=== PATIENT | female | born 1970 | race Caucasian/White ===

== ENCOUNTER → 2019-05-27 13:43 | Outpatient (BNVA) | payer MEDICARE, SELFPAY | PROVIDERS: PCP Nurse Practitioner Family; Visit Provider Nurse Practitioner | DX: M48.02 Spinal stenosis, cervical region (principal); G89.29 Other chronic pain; M54.5 Low back pain; G43.709 Chronic migraine without aura, not intractable, without status migrainosus; Z79.891 Long term (current) use of opiate analgesic | CPT/HCPCS: 99214 ==

== ENCOUNTER 2019-07-04 20:51 | Inpatient (IN) | payer MEDICARE, SELFPAY ==
[2019-07-04 20:54] VITALS: BP 158/118; PULSE 70; RESP 24; TEMP 36.6; O2SAT 99; BMI 44.1
[2019-07-04 21:49] LABS: Basophils # 0.1 10^3/uL (0.0-0.1); Basophils % 0.5 %; Eosinophils # 0.1 10^3/uL (0.0-0.8); Eosinophils % 0.9 %; Hematocrit 46.3 % (37.0-47.0); Hemoglobin 15.3 g/dL (11.5-15.3); Lymphocytes # 1.3 10^3/uL (0.8-4.8); Lymphocytes % 9.9 %; Mean Corpuscular Hemoglobin 32.9 pg (28.0-34.0); Mean Corpuscular Volume 99.6 fL (81-99); Mean Platelet Volume 9.9 fL (7.4-10.4); Monocytes # 0.7 10^3/uL (0.2-0.9); Neutrophils # 10.8 10^3/uL (1.8-7.7); Neutrophils % 83.3 %; Nucleated Red Blood Cells % 0 %; Platelet Count 414 10^3/cmm (130-400); Red Blood Count 4.65 10^6/uL (4.1-5.3); Red Cell Distribution Width 11.7 % (12.1-15.1)
[2019-07-04 22:02] LABS: Alanine Aminotransferase 25 U/L (0-33); Albumin Level 4.7 g/dL (3.5-5.2); Alkaline Phosphatase 50 IU/L (35-105); Anion Gap 18.3 (5-19); Aspartate Amino Transferase 30 U/L (0-32); Blood Urea Nitrogen 10 mg/dL (6-20); Calcium 10.7 mg/dL (8.5-10.5); Carbon Dioxide 26 mmol/L (22-29); Chloride 100 mmol/L (98-107); Globulin 4.6 g/dL (1.3-4.6); Glomerular Filtration Rate 75.9 mL/min (90-130); Glucose 141 mg/dL (65-115); Lipase 17 U/L (13-60); Potassium 4.3 mmol/L (3.5-5.1); Sodium 140 mmol/L (136-145); Total Bilirubin 0.6 mg/dL (0.15-1.2); Total Protein 9.3 g/dL (6.6-8.7)
--- NOTE | 2019-07-04 23:54 | ED_ITS ---
Entered by Marline Hinton, acting as scribe for Radha Martínez MD Jul 04, 2019 20:51 HPI - Abdominal Pain General: Chief Complaint: Abdominal Pain Stated Complaint: abd pain/n/v Time Seen by Provider: 07/04/19 23:52 Source: patient Mode of arrival: ambulatory Limitations: no limitations History of Present Illness: HPI narrative: 48 yo f came to the er pov for abd pain. Pt states that she has had some abd pain, nausea and vomiting. MD elicited complaint: abdominal pain Onset (ago): day(s) (today) Pain Consistency: constant Location: LUQ, RUQ, RLQ and LLQ Severity: moderate Radiation: none Exacerbating factors: nothing Relieving factors: nothing Associated Symptoms: Reports chills, nausea and vomiting; Denies dysuria Review of Systems General: Reports: other (negative unless marked) Const: Reports: chills Eyes: Denies: blurry vision or eye discomfort ENMT: Denies: throat pain or dental pain Card: Denies: chest pain Resp: Denies: shortness of breath GI: Reports: abdominal pain, nausea and vomiting : Denies: painful urination Musc: Denies: neck pain or back pain Skin/Breast: Denies: rash Neuro: Denies: headache Psych: Denies: depression Yonis/Lymph: Denies: easy bruising All/Imm: Denies: hives PFSH ED PFSH: Statuses (acute, chronic, etc) shown below reflect problem list status as previously entered and may not be historically accurate Medical History (Updated 07/05/19 @ 02:13 by Radha Martínez MD) Cervical stenosis of spine Chronic lumbosacral pain Chronic migraine w/o aura w/o status migrainosus, not intractable Status post fracture of femur left leg bone Surgical History (Updated 05/27/19 @ 14:30 by DARSHAN Meyer) S/P section S/P cholecystectomy S/P exploratory laparotomy abdominal surgery S/P splenectomy S/P tubal ligation Social History Smoking and tobacco status: never smoked Alcohol intake: current Alcohol intake frequency: holidays/special occasions only Physical Exam Const: COMMON NORMALS: no apparent distress, oriented x3 and healthy appearing HENMT: COMMON NORMALS: normocephalic and head/scalp atraumatic HEAD & SCALP: normocephalic and atraumatic Eye: COMMON NORMALS: PERRL and EOMs intact bilaterally PUPIL: Yes PERRL Neck/C-Spine: COMMON NORMALS: full ROM and supple Chest: COMMONS NORMALS: inspection of chest normal and palpation of chest normal Resp: COMMON NORMALS: normal respiratory effort, no retractions, no use of accessory muscles and clear to auscultation bilaterally AUSCULTATION: clear to auscultation bilaterally Cardio: COMMON NORMALS: regular rate, regular rhythm and no murmurs RATE: regular rate RHYTHM: regular rhythm GI: INSPECTION: Yes normal to inspection and Yes abdominal distension AUSCULTATION: Yes absent bowel sounds PALPATION: Yes firm Extremity: COMMON NORMALS: normal to inspection and full ROM Neuro: COMMON NORMALS: oriented x3, moves all extremities and no focal motor deficits Psych: COMMON NORMALS: mental status grossly normal, thought process normal and cooperative THOUGHT PROCESS: normal thought process Skin: COMMON NORMALS: no rashes or lesions noted and no wounds GENERAL SKIN EXAM: no rashes or lesions noted Course Vital Signs: Vital signs: Vital Signs Temperature 97.8 F 07/04/19 20:54 Pulse Rate 65 07/05/19 01:10 Respiratory Rate 24 H 07/04/19 20:54 Blood Pressure 170/96 07/05/19 01:10 Pulse Oximetry 96 07/05/19 01:10 MDM - Abdominal Pain MDM Narrative: Medical decision making narrative: Patient presents here with a small bowel obstruction. Patient CT scan showed this. Patient's lab work is otherwise normal. I spoke to hospitalist and will admit and place NG tube. Lab Data: Labs: Lab Results 07/04/19 07/04/19 07/05/19 Range/Units 21:38 21:38 00:27 WBC 13.0 H (4.0-10.0) 10^3/ uL RBC 4.65 (4.1-5.3) 10^6/u L Hgb 15.3 (11.5-15.3) g/dL Hct 46.3 (37.0-47.0) % MCV 99.6 H (81-99) fL MCH 32.9 (28.0-34.0) pg MCHC 33.0 (30.0-36.0) g/dL RDW 11.7 L (12.1-15.1) % Plt Count 414 H (130-400) 10^3/c mm MPV 9.9 (7.4-10.4) fL Neut % (Auto) 83.3 % Lymph % (Auto) 9.9 % Luna % (Auto) 5.0 % Eos % (Auto) 0.9 % Baso % (Auto) 0.5 % Neut # (Auto) 10.8 H (1.8-7.7) 10^3/u L Lymph # (Auto) 1.3 (0.8-4.8) 10^3/u L Luna # (Auto) 0.7 (0.2-0.9) 10^3/u L Eos # (Auto) 0.1 (0.0-0.8) 10^3/u L Baso # (Auto) 0.1 (0.0-0.1) 10^3/u L Nucleated RBC % (a uto) 0 % Nucleated RBCs # 0.0 /100WBC Sodium 140 (136-145) mmol/L Potassium 4.3 (3.5-5.1) mmol/L Chloride 100 (98-107) mmol/L Carbon Dioxide 26 (22-29) mmol/L Anion Gap 18.3 (5-19) BUN 10 (6-20) mg/dL Creatinine 0.8 (0.5-0.9) mg/dL GFR Calculation 75.9 L (90-130) mL/min Glucose 141 H (65-115) mg/dL Calcium 10.7 H (8.5-10.5) mg/dL Total Bilirubin 0.6 (0.15-1.2) mg/dL AST 30 (0-32) U/L ALT 25 (0-33) U/L Alkaline Phosphata se 50 (35-105) IU/L Total Protein 9.3 H (6.6-8.7) g/dL Albumin 4.7 (3.5-5.2) g/dL Globulin 4.6 (1.3-4.6) g/dL Lipase 17 (13-60) U/L Urine Color Yellow (Yellow) Urine Appearance Clear (CLEAR) Urine pH 7 (5-7) Ur Specific Gravit y 1.010 (1.005-1.030) Urine Protein Neg (Negative) Urine Glucose (UA) Norm (Normal) Urine Ketones 2+ H (Negative) Urine Occult Blood Neg (Negative) Urine Nitrate Negative (Negative) Urine Bilirubin Neg (NEGATIVE) Urine Urobilinogen Norm (Negative) mg/dL Ur Leukocyte Jenny ase Trace H (Negative) Urine RBC 0-4 H (0-2) /hpf Urine WBC 15-25 H (0-5) /hpf Ur Squamous Epith Cells 15-25 H (0-5) Urine Bacteria 2+ H (NONE) Imaging Data ^: CT Abd/Pel: Radiologist's impression: Ordering Provider/Ordering MD: Radha Martínez MD Date of Service: 07/04/19 Procedure(s): CT abdomen pelvis w con* [id number] Accession Number(s): [id number] Report Number: [id number] PROCEDURE INFORMATION: Exam: CT Abdomen And Pelvis With Contrast Exam date and time: 07/04/2019 12:13 AM Age: 48 years old Clinical indication: Nausea and vomiting; Abdominal pain; Localized; Left upper quadrant (luq); Prior surgery; Surgery date: 6+ months; Surgery type: Gb, splenectomy; Additional info: Abd pain TECHNIQUE: Imaging protocol: Computed tomography of the abdomen and pelvis with intravenous contrast. Total DLP: 2014.22 mGy-cm Radiation optimization: All CT scans at this facility use at least one of these dose optimization techniques: automated exposure control; mA and/or kV adjustment per patient size (includes targeted exams where dose is matched to clinical indication); or iterative reconstruction. Contrast material: OMNI 300; Contrast volume: 95 ml; Contrast route: IV; COMPARISON: CT pelvis w con* [id number] 02/13/2019 1:29 AM FINDINGS: Lungs: There is subpleural atelectasis of the dependent portions of the lungs. There is a mild tree-in-bud appearance to the lung bases compatible with mild pneumonitis. There is a 4 mm nodule right lower lobe image 80. Liver: There is a diffuse decrease in hepatic parenchymal density, consistent with fatty infiltration. Gallbladder and bile ducts: There has been a cholecystectomy. Pancreas: Normal. No ductal dilation. Spleen: Normal. No splenomegaly. Adrenals: Normal. No mass. Kidneys and ureters: There is no evidence of hydronephrosis. There is no evidence of renal calcifications. Stomach and bowel: There are fluid-filled dilated loops of small bowel compatible with partial small bowel obstruction with the greatest transverse measurement of 4.2 cm. There is induration of the adjacent fat. There is an abrupt transition zone compatible probable adhesions. Appendix: No evidence of appendicitis. Intraperitoneal space: Unremarkable. No free air. No significant fluid collection. Vasculature: Unremarkable.No abdominal aortic aneurysm. Lymph nodes: Unremarkable.No enlarged lymph nodes. Bladder: The bladder is decompressed. Reproductive: Uterus is mildly enlarged and lobulated in contour with heterogeneous density compatible with fibroids. Visualized ovaries and adnexa are unremarkable. Bones/joints: Unremarkable. No acute fracture. Soft tissues: There is a fat-containing umbilical hernia. CT/CT abdomen pelvis w con* [id number] IMPRESSION: 1. Mild pneumonitis and atelectasis. 4 mm right basilar nodule. For patients at low risk (minimal or absent history of smoking and of other known risk factors), no routine follow-up is indicated. For patients at high risk (history of smoking or of other known risk factors), consider optional CT Chest at 12 months. MacMahon H, Fleischner Society, 2017. 2. Partial small bowel obstruction with abrupt transition compatible with probable adhesions. Discharge Plan Discharge Patient Disposition: Admitted As Inpatient Admit Provider: Heather Gordon Clinical Impression: Small bowel obstruction Condition: Stable Coding Level of Care Code ED Roller Printer for Chg Fwd Exam Problem Focused The documentation recorded by the Jamaal simon Stephanie Lyn, accurately reflects the service I personally performed and the decisions made by Mauricio pina Korby, MD Jul 04, 2019 20:51
[2019-07-04 23:57] VITALS: BP 200/104; PULSE 67; O2SAT 95
--- NOTE | 2019-07-04 23:57 | CTR_ITS ---
PROCEDURE INFORMATION: Exam: CT Abdomen And Pelvis With Contrast Exam date and time: 07/04/2019 12:13 AM Age: 48 years old Clinical indication: Nausea and vomiting; Abdominal pain; Localized; Left upper quadrant (luq); Prior surgery; Surgery date: 6+ months; Surgery type: Gb, splenectomy; Additional info: Abd pain TECHNIQUE: Imaging protocol: Computed tomography of the abdomen and pelvis with intravenous contrast. Total DLP: 2014.22 mGy-cm Radiation optimization: All CT scans at this facility use at least one of these dose optimization techniques: automated exposure control; mA and/or kV adjustment per patient size (includes targeted exams where dose is matched to clinical indication); or iterative reconstruction. Contrast material: OMNI 300; Contrast volume: 95 ml; Contrast route: IV; COMPARISON: CT pelvis w con* [id number] 02/13/2019 1:29 AM FINDINGS: Lungs: There is subpleural atelectasis of the dependent portions of the lungs. There is a mild tree-in-bud appearance to the lung bases compatible with mild pneumonitis. There is a 4 mm nodule right lower lobe image 80. Liver: There is a diffuse decrease in hepatic parenchymal density, consistent with fatty infiltration. Gallbladder and bile ducts: There has been a cholecystectomy. Pancreas: Normal. No ductal dilation. Spleen: Normal. No splenomegaly. Adrenals: Normal. No mass. Kidneys and ureters: There is no evidence of hydronephrosis. There is no evidence of renal calcifications. Stomach and bowel: There are fluid-filled dilated loops of small bowel compatible with partial small bowel obstruction with the greatest transverse measurement of 4.2 cm. There is induration of the adjacent fat. There is an abrupt transition zone compatible probable adhesions. Appendix: No evidence of appendicitis. Intraperitoneal space: Unremarkable. No free air. No significant fluid collection. Vasculature: Unremarkable.No abdominal aortic aneurysm. Lymph nodes: Unremarkable.No enlarged lymph nodes. Bladder: The bladder is decompressed. Reproductive: Uterus is mildly enlarged and lobulated in contour with heterogeneous density compatible with fibroids. Visualized ovaries and adnexa are unremarkable. Bones/joints: Unremarkable. No acute fracture. Soft tissues: There is a fat-containing umbilical hernia. CT/CT abdomen pelvis w con* [id number] IMPRESSION: 1. Mild pneumonitis and atelectasis. 4 mm right basilar nodule. For patients at low risk (minimal or absent history of smoking and of other known risk factors), no routine follow-up is indicated. For patients at high risk (history of smoking or of other known risk factors), consider optional CT Chest at 12 months. Tonya Barillas, Fleischner Society, 2017. 2. Partial small bowel obstruction with abrupt transition compatible with probable adhesions. Radiation Dose CTDIVOL = (mGy): DLP = 2014.22 (mGy-cm)
[2019-07-05] VITALS (11 sets, daily range): BP systolic 121–170; BP diastolic 74–96; PULSE 65–91; RESP 16–20; TEMP 37.1–37.3; O2SAT 93–97
[2019-07-05] MEDS: morphine 4 mg/mL SDV 1 mL IVP ×6 (00:17→20:14)
[2019-07-05] MEDS: ondansetron 2 mg/ML SDV 2 mL 4 MG IVP ×4 (00:17→17:45)
[2019-07-05] MEDS: sodium chloride 0.9% 1,000 ML 999 ML IV (00:18)
--- NOTE | 2019-07-05 00:32 | PC.NURSE ---
pt to CT by stretcher with tech
[2019-07-05] MEDS: iohexol 300 mg/mL 100 mL Btl IV (00:34)
[2019-07-05 01:08] LABS: Add Urine Microscopic? YES; Bilirubin Urine Neg (NEGATIVE); Blood Urine Neg (Negative); Glucose Urine UA Norm (Normal); Ketones Urine 2+ (Negative); Leukocyte Esterase Urine Trace (Negative); Nitrate Urine Negative (Negative); Protein Urine Neg (Negative); Urine Appearance Clear (CLEAR); Urine Color Yellow (Yellow); Urobilinogen Urine Norm (Negative); pH Urine 7 (5-7)
[2019-07-05] MEDS: LORazepam 2 mg/mL INJ 1 mL 1 MG IVP (01:09)
[2019-07-05 01:24] LABS: RBC Urine 0-4 /hpf (0-2); Squamous Epithelial Cell Urine 15-25 (0-5); WBC Urine 15-25 /hpf (0-5)
[2019-07-05 01:25] LABS: Add Urine Culture? No; Bacteria Urine 2+
[2019-07-05] MEDS: cetacaine Spray 5 gm Can 5 SPRAY (02:23)
[2019-07-05] MEDS: LORazepam 2 mg/mL INJ 1 mL IVP (02:24)
[2019-07-05] MEDS: sodium chloride 0.9% 1,000 ML 100 ML IV ×2 (03:15→17:34)
--- NOTE | 2019-07-05 03:27 | XR_ITS ---
WS: [id number] ABDOMEN Supine view of the abdomen CLINICAL INFORMATION: ng tube placement COMPARISON: None. FINDINGS: Enteric tube with tip in the proximal stomach. Cholecystectomy clips. Partially visualized bowel gas pattern. XR/XR abdomen 1V* [id number] IMPRESSION: Enteric tube with tip in the proximal stomach.
[2019-07-05] MEDS: lanolin oint 7 gm 1 APPLIC TOPICAL (03:57)
--- NOTE | 2019-07-05 05:28 | P.HP_ITS ---
Providers/Chief Complaint Admitting Physician: Heather Gordon MD Primary Care Provider: Abram Crump NP Chief Complaint: abd pain/n/v History of Present Illness Virgen Nam is a 48 year old female who presented to the emergency room with chief complaint of abdominal pain associated with frequent nausea and vomiting. She says pain came on somewhat suddenly. Pain is throughout her abdomen worse in the right sided quadrants and in the midline. She had a small hard bowel movement yesterday morning. She has continued to pass small amounts of gas intermittently. Last episode of vomiting was about an hour ago. She denies fevers. She has had similar symptoms in the past. CT of the abdomen and pelvis today showed partial small bowel obstruction with an abrupt transition point. NG tube was placed in the emergency room. She is being admitted for further monitoring and treatment as indicated. She has had NG tube before and describes having lots of adhesions related to prior abdominal surgeries. Biggest concern at the moment is the degree of pain. Her last dose of oxycodone was yesterday around noon that she was able to keep down. She has not had any hematemesis. Bowels are usually every other day and hard. No recent changes to this beyond what is described. Review of Systems Const: Reports: chills and night sweats; Denies: fever Eyes: Denies: change in vision ENMT: Reports: throat pain (With ngt) Card: Denies: chest pain Resp: Denies: shortness of breath GI: Reports: abdominal pain, nausea, vomiting, constipation (Goes usually every other day), bloating, cramping and change in bowel habits; Denies: vomiting blood or painful bowel movements : Denies: difficulty urinating or painful urination Musc: Denies: extremity pain Skin/Breast: Denies: rash or itching Neuro: Reports: headache (Hx of migraines, on propranolol, has daily) Psych: Reports: anxiety and depression Endo: Denies: deepening of the voice Medications/Allergies Allergies Allergy/AdvReac Type Severity Reaction Status Date / Time adhesive tape Allergy unknown Verified 05/27/19 14:04 celecoxib [From Celebrex] Allergy difficulty Verified 05/27/19 14:04 breathing duloxetine [From Cymbalta] Allergy difficulty Verified 05/27/19 14:04 breathing erythromycin base Allergy nausea Verified 05/27/19 14:04 NSAIDS (Non-Steroidal Allergy upset Verified 05/27/19 14:04 Anti-Inflamma stomach sumatriptan [From Imitrex] Allergy difficulty Verified 05/27/19 14:04 breathing topiramate [From Topamax] Allergy confusion Verified 05/27/19 14:04 venlafaxine [From Effexor] Allergy unknown Verified 05/27/19 14:04 Additional Medication Information Additional Medication Information: Her medications include oxycodone 30 mg 5 times a day, follows at the pain clinic [facility] for this, takes propranolol twice daily for migraine prophylaxis, take Zanaflex for muscle pain and takes Zofran for nausea. She takes melatonin for sleep. Medicines have to be further reviewed and verified otherwise. PFSH Acute PFSH: Statuses (acute, chronic, etc) shown below reflect problem list status as previously entered and may not be historically accurate Medical History (Updated 07/05/19 @ 06:04 by Heather Gordon MD) Cervical stenosis of spine Chronic lumbosacral pain Chronic migraine w/o aura w/o status migrainosus, not intractable On propranolol prophylaxis Status post fracture of femur left leg bone Surgical History (Updated 07/05/19 @ 05:30 by Heather Gordon MD) S/P section S/P cholecystectomy S/P exploratory laparotomy abdominal surgery S/P splenectomy S/P tubal ligation Social History Smoking and tobacco status: never smoked Alcohol intake: current Alcohol intake frequency: holidays/special occasions only Female Reproductive History: : 3 Para: 2 Vitals/I&O/Wt Last Vital Signs Temp 99.1 F 07/05/19 02:56 Pulse 89 07/05/19 02:56 Resp 20 H 07/05/19 02:56 BP 158/89 07/05/19 02:56 Pulse Ox 93 07/05/19 02:56 07/04/19 07/04/19 07/05/19 14:59 22:59 06:59 Intake Total 1000 / 1000 Balance 1000 / 1000 Weight last 48 hrs Weight 120.202 kg Physical Exam Const: COMMON NORMALS: oriented x3 and alert HENMT: COMMON NORMALS: normocephalic and head/scalp atraumatic Eye: COMMON NORMALS: PERRL and EOMs intact bilaterally Neck/C-Spine: COMMON NORMALS: supple and no JVD Resp: COMMON NORMALS: normal respiratory effort and clear to auscultation bilaterally Cardio: COMMON NORMALS: regular rate and regular rhythm; negative for no gallops and negative for no murmurs GI: COMMON NORMALS: soft to palpation AUSCULTATION: Yes high-pitched bowel sounds PALPATION: Yes tender Details: RLQ, LUQ and RUQ Extremity: COMMON NORMALS: no clubbing, cyanosis or edema Neuro: COMMON NORMALS: moves all extremities and no sensory deficits noted Psych: COMMON NORMALS: mental status grossly normal and cooperative Skin: NARRATIVE SKIN EXAM: No acute rashes noted some sores in different stages of healing minor Data : 07/04/19 21:38 07/04/19 21:38 Other Labs: Urine with 2+ ketones and otherwise looks to be a contaminated specimen LFTs normal although total protein was a bit high, suspect due to volume depletion CT Abd/Pel: Radiologist's impression: 1. Mild pneumonitis and atelectasis. 4 mm right basilar nodule. For patients at low risk (minimal or absent history of smoking and of other known risk factors), no routine follow-up is indicated. For patients at high risk (history of smoking or of other known risk factors), consider optional CT Chest at 12 months. Tonya Barillas, Fleischner Society, 2017. 2. Partial small bowel obstruction with abrupt transition compatible with probable adhesions. A&P Assessment and plan (1) Small bowel obstruction: In a patient with multiple prior abdominal surgeries. From the sounds of things she probably has chronic issues to some degree. This is acutely worsened the past couple of days. Status: Acute Code(s): K56.609 - Unspecified intestinal obstruction, unspecified as to partial versus complete obstruction (2) Chronic narcotic use: Follows at the pain clinic, on oxycodone 30 mg 5 times a day as well as Zanaflex. Status: Acute Code(s): F11.90 - Opioid use, unspecified, uncomplicated (3) Chronic migraine w/o aura w/o status migrainosus, not intractable: On chronic propranolol for prophylaxis, still has a migraine daily Status: Chronic Code(s): G43.709 - Chronic migraine without aura, not intractable, without status migrainosus Additional A&P Information Continue NG tube Consult surgery IV pain medications for now, discussed with patient the challenge of getting adequate analgesia with IV medications when she has been on the doses of oral medicine she usually takes. Told her that we would work on getting her pain under control Check lactic acid IV fluids Keep n.p.o. Resume home medications when able Supportive care otherwise Plans discussed with patient and she was given an opportunity to ask questions Full code Attestations Medical Necessity Statement*: Anticipated stay greater than 2 midnights in a patient with partial small bowel obstruction with an abrupt transition point noted on CT imaging. She has had persistent nausea, vomiting and abdominal pain. She is normally on high-dose oral narcotics which will make management more challenging. Plans are as noted. Coding Level of Care Code Acute [employer] Support for Dashawn Randall Diagnoses Small bowel obstruction K56.609 Chronic narcotic use F11.90 Chronic migraine w/o aura w/o status migrainosus, not intractable G43.708
--- NOTE | 2019-07-05 06:25 | PM.CONSULT ---
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 Patient denies any fevers or chills Patient reports that she had passed gas yesterday and a small bowel movement and usually she does have every other day a small bowel movement, she also reports that she has been on chronic narcotic therapy for migraine General surgery was consulted for further evaluation Review of Systems Const: Denies: fever, chills, body aches or malaise Card: Denies: chest pain Resp: Denies: shortness of breath GI: Reports: abdominal pain, nausea, vomiting and constipation; Denies: difficulty swallowing, diarrhea or blood in stool Neuro: Denies: headache Psych: Denies: anxiety or depression Meds/Allergies Home Medications and Allergies Home Medications Medication Instructions Recorded Confirmed Type cyanocobalamin (vitamin B-12) 1,000 mcg PO ONCE 05/19/19 05/27/19 History 1,000 mcg capsule diphenhydramine HCl 25 mg capsule 25 mg PO ONCE PRN cap 05/19/19 05/27/19 History melatonin 10 mg capsule 10 mg PO ONCE 05/19/19 05/27/19 History xcsajbh-kudnoqfry-cuul 333 mg-133 tab PO DAILY tab 05/27/19 05/27/19 History mg-8.3 mg tablet famotidine 10 mg tablet 10 mg PO ONCE PRN tab 05/27/19 05/27/19 History Allergies Allergy/AdvReac Type Severity Reaction Status Date / Time adhesive tape Allergy unknown Verified 07/05/19 08:31 celecoxib [From Celebrex] Allergy difficulty Verified 07/05/19 08:31 breathing duloxetine [From Cymbalta] Allergy difficulty Verified 07/05/19 08:31 breathing erythromycin base Allergy nausea Verified 07/05/19 08:31 NSAIDS (Non-Steroidal Allergy upset Verified 07/05/19 08:31 Anti-Inflamma stomach sumatriptan [From Imitrex] Allergy difficulty Verified 07/05/19 08:31 breathing topiramate [From Topamax] Allergy confusion Verified 07/05/19 08:31 venlafaxine [From Effexor] Allergy unknown Verified 07/05/19 08:31 Current Medications Current Medications Generic Name Dose Route Start Last Admin Trade Name Freq PRN Reason Stop Dose Admin Sodium Chloride 1,000 mls @ 100 mls/hr 07/05/19 02:56 07/05/19 03:15 Sodium Chloride 0.9% IV 100 mls/hr .Q10H JELLY Administration Lanolin 1 applic 07/05/19 03:35 07/05/19 03:57 Lanolin Oint TOPICAL 1 applic PRN PRN Administration DRYNESS PFSH Acute PFSH: Statuses (acute, chronic, etc) shown below reflect problem list status as previously entered and may not be historically accurate Medical History Cervical stenosis of spine (Chronic) Chronic lumbosacral pain (Chronic) Chronic migraine w/o aura w/o status migrainosus, not intractable (Chronic) On propranolol prophylaxis Status post fracture of femur (Resolved) left leg bone Surgical History S/P section (Resolved) S/P cholecystectomy (Resolved) S/P exploratory laparotomy (Acute) abdominal surgery S/P splenectomy (Resolved) S/P tubal ligation (Resolved) Family History Mother Hypertension Social History Smoking and tobacco status: never smoked Alcohol intake: current Alcohol intake frequency: holidays/special occasions only Female Reproductive History: : 3 Para: 2 Vitals/I&O/Wt Last Vital Signs Temp 99.1 F 07/05/19 02:56 Pulse 89 07/05/19 02:56 Resp 20 H 07/05/19 02:56 BP 158/89 07/05/19 02:56 Pulse Ox 93 07/05/19 02:56 07/04/19 07/04/19 07/05/19 14:59 22:59 06:59 Intake Total 1000 / 1000 Balance 1000 / 1000 Weight last 48 hrs Weight 265 lb Physical Exam Const: COMMON NORMALS: no apparent distress and oriented x3 GENERAL APPEARANCE: cooperative ORIENTATION/CONSCIOUSNESS: Yes awake, Yes oriented to person, Yes oriented to place and Yes oriented to time HENMT: COMMON NORMALS: normocephalic HEAD & SCALP: normocephalic Eye: COMMON NORMALS: PERRL and no scleral icterus PUPIL: Yes PERRL Lymph: LYMPHATIC: no lymphadenopathy noted Chest: COMMONS NORMALS: inspection of chest normal Resp: COMMON NORMALS: normal respiratory effort and clear to auscultation bilaterally AUSCULTATION: clear to auscultation bilaterally Cardio: COMMON NORMALS: S1 normal heart sound and S2 normal heart sound; negative for no murmurs HEART SOUNDS: S1 normal and S2 normal GI: COMMON NORMALS: soft to palpation; negative for no hepatosplenomegaly INSPECTION: Yes normal to inspection PALPATION: Yes soft, No firm, No tender, No guarding, No rigid and No no hepatosplenomegaly Neuro: COMMON NORMALS: oriented x3 SENSORIUM/ORIENTATION: Yes oriented to person, Yes oriented to place and Yes oriented to time A&P Assessment and plan (1) Small bowel obstruction: After thorough history taking physical examination and reviewing the chart and images with my personal interpretation, with elect to go for conservative measures for now particularly the patient is passing gas and having bowel movement Continue to follow Unfortunately the patient pulled out the NG tube it would be more effective if she would accept to have it in the low intermittent wall suction Repeated physical examination Strict I's and O's Likely the patient has adhesive bowel obstruction, yet I do believe that look into her urinalysis is concerning for potential UTI, will defer to hospitalist service with that regard. Thank you for consulting general surgery to participate taking care Ms. Nam Status: Acute Code(s): K56.609 - Unspecified intestinal obstruction, unspecified as to partial versus complete obstruction Consult Attestations Medical Necessity Statement: Observation status Time Spent in Patient Care: 16 - 35 minutes Coding Level of Care Code Acute Passenger Service Representative for Chg Fwd Exam Problem Focused Diagnoses Small bowel obstruction K56.609
[2019-07-05] MEDS: D5-NS 0.45% + KCL 20 mEq 20 MEQ/1,000 ML BAG 125 MEQ IV (07:56)
[2019-07-05 08:58] LABS: Lactic Sepsis W/Reflex 1.3 mmol/L (0.5-2.2)
[2019-07-05 09:06] LABS: NT Pro B Type Natriuretic Pept 294 pg/mL (0-125)
[2019-07-05 09:12] LABS: Basophils % 0.2 %; Hematocrit 41.5 % (37.0-47.0); Lymphocytes # 1.4 10^3/uL (0.8-4.8); Lymphocytes % 9.5 %; Mean Corpuscular HGB Conc 33.7 g/dL (30.0-36.0); Mean Corpuscular Hemoglobin 33.4 pg (28.0-34.0); Mean Platelet Volume 10.5 fL (7.4-10.4); Monocytes % 6.8 %; Neutrophils # 11.9 10^3/uL (1.8-7.7); Neutrophils % 83.2 %; Nucleated Red Blood Cells % 0 %; Platelet Count 392 10^3/cmm (130-400); Red Blood Count 4.19 10^6/uL (4.1-5.3); Red Cell Distribution Width 11.7 % (12.1-15.1); White Blood Count 14.4 10^3/uL (4.0-10.0)
--- NOTE | 2019-07-05 13:03 | PC.CHAP ---
Pastoral Care Encounter/Spiritual Assessment Type of Contact [] Declined pipe wrapping machine operator visit [] Patient/Family/Request visit [] Outpatient visit [] Follow-up visit [] Physician referral [] Code/Alert [x] Routine visit [] Staff referral [] Actively dying [] Patient sleeping [] Family support [] [] Out of room [] Palliative care [] [] Receiving care in room [] Pre-surgical visit [] Trauma [] Long length of stay [] ICU visit [] Other: Relational/Emotional Strength [x] Patient feels connected with others/family/visitors/staff [] Distress [] Loneliness/isolation [] Abandonment Spirituality of Patient [x] Person of Suzie [x] Attends Temple of their Suzie [x] Believes in Prayer [] Reads Bible or Evangelical materials [] There are Spiritual issues to be addressed Cyber Engineer Interventions [x] Prayer [x] Active listening [x] Non-anxious presence [x] Spiritual/emotional support [] Crisis/trauma care [] Spiritual counseling [] Bereavement support [] Provided bereavement packet [] Provided Bible/devotional materials [] Provided toy/stuffed animal, coloring book to patient or family member [] Provided Communion [] Anointing/[place] [] Salvation [x] Completed spiritual assessment [] Other: Impact on Illness or Injury [] Angry [] Fearful [] Anxious [] Often cries [] Exhaustion [] Unable to work [] Unable to attend cheondoism [] Unable to walk/stand [] Unable to read [] Unable to drive [] Unable to eat/drink [] Unable to sleep [] Unable to be with family [] Patient intubated [] Other: Summary patient has very bad headache Time spent with patient 10 min
[2019-07-05] MEDS: scopolamine 1.5 Patch 1 PATCH TRANSDERMA (17:44)
[2019-07-05] MEDS: heparin 5,000 unit/mL INJ 1 mL 5000 UNIT SUBCUT (17:44)
[2019-07-05] MEDS: cefTRIAXone 1,000 MG in sodium chloride 0.9% (plus) 50 ML 100 MG IV (17:45)
[2019-07-05] MEDS: metoclopramide 5 mg/mL SDV 2 mL IVP (17:45)
--- NOTE | 2019-07-05 20:45 | PM.PN ---
Subjective Subjective: Interval history: She is feeling better this morning. Her abdomen is achy all or after nausea and vomiting, however, these have since resolved. No severe pain. She is passing flatus. Denies significant eructation. She surrounded by family. Vitals/I&O/Wt Last Vital Signs Temp 98.7 F 07/05/19 16:00 Pulse 83 07/05/19 16:00 Resp 16 07/05/19 20:14 BP 146/79 07/05/19 16:00 Pulse Ox 94 07/05/19 20:14 07/05/19 07/05/19 07/05/19 06:59 14:59 22:59 Intake Total 1000 / 1000 1000 / 1000 Balance 1000 / 1000 1000 / 1000 Weight last 48 hrs Weight 120.202 kg Physical Exam Const: COMMON NORMALS: no apparent distress (Mild discomfort secondary to abdominal symptoms.) and oriented x3 HENMT: COMMON NORMALS: oropharynx normal Neck/C-Spine: COMMON NORMALS: no JVD Resp: COMMON NORMALS: normal respiratory effort and clear to auscultation bilaterally AUSCULTATION: clear to auscultation bilaterally Cardio: COMMON NORMALS: no JVD, regular rhythm, S1 normal heart sound, S2 normal heart sound and no murmurs RHYTHM: regular rhythm HEART SOUNDS: S1 normal and S2 normal GI: COMMON NORMALS: soft to palpation INSPECTION: Yes abdominal distension PALPATION: Yes soft and Yes tender (Mild generalized abdominal wall tenderness on palpation.) Extremity: COMMON NORMALS: no joint enlargement and no pedal edema Neuro: COMMON NORMALS: oriented x3 and moves all extremities Skin: COMMON NORMALS: no rashes or lesions noted GENERAL SKIN EXAM: no rashes or lesions noted Data : 07/05/19 08:20 07/04/19 21:38 A&P Assessment and plan (1) Small bowel obstruction: She reports prior abdominal surgeries, as well as multiple adhesions during the last surgery. She is currently doing better. Nausea and vomiting have resolved. She is passing flatus. Still no appetite. Has not had a bowel movement. She had removed the NG tube earlier today. She is doing better, and was advanced to clear liquid diet by surgery. Status: Acute Code(s): K56.609 - Unspecified intestinal obstruction, unspecified as to partial versus complete obstruction (2) Chronic narcotic use: Follows at the pain clinic, on oxycodone 30 mg 5 times a day as well as Zanaflex. Will need a better bowel regimen on discharge. Status: Acute Code(s): F11.90 - Opioid use, unspecified, uncomplicated (3) Chronic migraine w/o aura w/o status migrainosus, not intractable: On chronic propranolol for prophylaxis, still has a migraine daily Status: Chronic Code(s): G43.709 - Chronic migraine without aura, not intractable, without status migrainosus Additional A&P Information UTI: Her urinalysis is somewhat difficult to interpret, and may be contaminated given 15-25 squamous epithelial cells along with the 15-25 WBCs. Nitrite is negative. She is, however, reporting feeling of lower abdominal fullness and some discomfort. 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 She and her report she was recently treated for urinary tract infection, although feels she never fully recovered. For now I have started her on Rocephin as I do not see any record of prior culture in current our last version of [employer]. Requested that urine sample be sent for culture. Attestations Medical Necessity Statement*: Continue admission for assessment of management of partial SBO. Coding Level of Care Code Acute Glass Sander for Dashawn Randall Diagnoses Small bowel obstruction K56.609 Chronic narcotic use F11.90 Chronic migraine w/o aura w/o status migrainosus, not intractable G43.709
[2019-07-05] MEDS: diphenhydrAMINE 50 mg/mL SDV 1mL 25 MG IVP (22:26)
[2019-07-06] VITALS (15 sets, daily range): BP systolic 133–171; BP diastolic 77–92; PULSE 68–81; RESP 16–24; TEMP 36.7–37.3; O2SAT 94–98
[2019-07-06] MEDS: sodium chloride 0.9% 1,000 ML 100 ML IV ×3 (02:03→17:24)
[2019-07-06] MEDS: metoclopramide 5 mg/mL SDV 2 mL IVP (02:03)
[2019-07-06] MEDS: heparin 5,000 unit/mL INJ 1 mL 5000 UNIT SUBCUT ×3 (02:03→17:27)
[2019-07-06] MEDS: morphine 4 mg/mL SDV 1 mL IVP ×6 (04:09→22:48)
[2019-07-06] MEDS: diphenhydrAMINE 50 mg/mL SDV 1mL 25 MG IVP ×4 (04:10→20:54)
[2019-07-06] MEDS: ondansetron 2 mg/ML SDV 2 mL 4 MG IVP ×6 (04:10→22:48)
--- NOTE | 2019-07-06 05:56 | P.PN_ITS ---
Subjective Subjective: Interval history: Patient overall feels well and passing gas Tolerating clear liquid diet Vitals/I&O/Wt Last Vital Signs Temp 99.1 F 07/06/19 01:25 Pulse 73 07/06/19 01:25 Resp 20 H 07/06/19 04:09 BP 160/79 07/06/19 01:25 Pulse Ox 95 07/06/19 04:09 07/05/19 07/05/19 07/06/19 14:59 22:59 06:59 Intake Total 1000 / 1000 500 / 1500 848.333 / 2348.333 Balance 1000 / 1000 500 / 1500 848.333 / 2348.333 Weight last 48 hrs Weight 265 lb Physical Exam Const: COMMON NORMALS: no apparent distress and oriented x3 GENERAL APPEARANCE: cooperative ORIENTATION/CONSCIOUSNESS: Yes awake, Yes oriented to person, Yes oriented to place and Yes oriented to time Eye: COMMON NORMALS: PERRL and no scleral icterus PUPIL: Yes PERRL GI: COMMON NORMALS: soft to palpation; negative for no hepatosplenomegaly INSPECTION: Yes normal to inspection PALPATION: Yes soft, No firm, No tender, No guarding, No rigid and No no hepatosplenomegaly Neuro: COMMON NORMALS: oriented x3 SENSORIUM/ORIENTATION: Yes oriented to person, Yes oriented to place and Yes oriented to time Skin: COMMON NORMALS: no rashes or lesions noted GENERAL SKIN EXAM: no rashes or lesions noted Data : 07/06/19 05:44 07/06/19 05:44 A&P Assessment and plan (1) Small bowel obstruction: It seems that the patient is responding to conservative measures From surgical standpoint of view can advance diet as tolerated Encourage ambulation Once patient tolerates well p.o. intake can be discharged and follow-up with surgery service as needed Assurance and education All questions have been answered I do not see at this point an indication for surgical intervention Thank you for consulting general surgery to participate taking care Ms. Nam Status: Acute Code(s): K56.609 - Unspecified intestinal obstruction, unspecified as to partial versus complete obstruction Attestations Medical Necessity Statement*: Per hospitalist service Time Spent in Patient Care: 16 - 35 minutes (>than 50% of time spent in counselling and/or direct pt care on unit) . Coding Level of Care Code Acute Pipe Stem Sawyer for Chg Fwd Diagnoses Small bowel obstruction K56.462
[2019-07-06 06:19] LABS: Basophils % 0.4 %; Eosinophils % 0.3 %; Hematocrit 38.3 % (37.0-47.0); Hemoglobin 12.5 g/dL (11.5-15.3); Lymphocytes # 2.3 10^3/uL (0.8-4.8); Lymphocytes % 21.4 %; Mean Corpuscular HGB Conc 32.6 g/dL (30.0-36.0); Mean Corpuscular Hemoglobin 34.5 pg (28.0-34.0); Mean Corpuscular Volume 105.8 fL (81-99); Mean Platelet Volume 10.4 fL (7.4-10.4); Monocytes # 1.2 10^3/uL (0.2-0.9); Monocytes % 11.1 %; Neutrophils # 7.1 10^3/uL (1.8-7.7); Neutrophils % 66.4 %; Nucleated Red Blood Cells % 0 %; Platelet Count 343 10^3/cmm (130-400); Red Blood Count 3.62 10^6/uL (4.1-5.3); Red Cell Distribution Width 12.1 % (12.1-15.1); White Blood Count 10.7 10^3/uL (4.0-10.0)
[2019-07-06 06:35] LABS: Anion Gap 16.7 (5-19); Blood Urea Nitrogen 7 mg/dL (6-20); Carbon Dioxide 20 mmol/L (22-29); Chloride 104 mmol/L (98-107); Glomerular Filtration Rate 105.8 mL/min (90-130); Glucose 100 mg/dL (65-115); Osmolality Calculated 280 mOsm/kg (285-295); Potassium 3.7 mmol/L (3.5-5.1); Sodium 137 mmol/L (136-145)
--- NOTE | 2019-07-06 14:47 | P.PN_ITS ---
Subjective Subjective: Interval history: abdominal fullness better. Started on clear liquid diet this morning. tolerating well. requesting xanax at home dose for anxiety. Medications: Reviewed: Yes Medication Review Details: Her medications include oxycodone 30 mg 5 times a day, follows at the pain clinic [facility] for this, takes propranolol twice daily for migraine prophylaxis, take Zanaflex for muscle pain and takes Zofran for nausea. She takes melatonin for sleep. Medicines have to be further reviewed and verified otherwise. 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 She is currently doing better. Nausea and vomiting have resolved. She is passing flatus. Still no appetite. Has not had a bowel movement. will advance diet as tolerated Status: Acute Code(s): K56.609 - Unspecified intestinal obstruction, unspecified as to partial versus complete obstruction (2) Chronic narcotic use: Follows at the pain clinic, on oxycodone 30 mg 5 times a day as well as Zanaflex. Will need a better bowel regimen on discharge. Status: Acute Code(s): F11.90 - Opioid use, unspecified, uncomplicated (3) Chronic migraine w/o aura w/o status migrainosus, not intractable: On chronic propranolol for prophylaxis, still has a migraine daily Status: Chronic Code(s): G43.709 - Chronic migraine without aura, not intractable, without status m igrainosus Additional A&P Information UTI: Her urinalysis is somewhat difficult to interpret, and may be contaminated given 15-25 squamous epithelial cells along with the 15-25 WBCs. Nitrite is negative. She is, however, reporting feeling of lower abdominal fullness and some discomfort. 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 She and her report she was recently treated for urinary tract infection, although feels she never fully recovered. For now I have started her on Rocephin as I do not see any record of prior culture in current our last version of [employer]. Requested that urine sample be sent for culture. Attestations Medical Necessity Statement*: management of SBO, currently improving Coding Level of Care Code Acute Teacher Nurs[employer] for [facility] Diagnoses Small bowel obstruction K56.609 Chronic narcotic use F11.90 Chronic migraine w/o aura w/o status migrainosus, not intractable G43.709
[2019-07-06] MEDS: ALPRAZolam 0.25 mg Tablet PO ×2 (17:41→22:48)
--- NOTE | 2019-07-06 21:40 | PC.NURSE ---
Primary RN notified of elevated BP.
[2019-07-06] MEDS: famotidine 20 mg/2 mL INJ IVP (22:19)
[2019-07-07] VITALS: BP 157/85; PULSE 73; RESP 16; TEMP 36.7; O2SAT 95
[2019-07-07] MEDS: heparin 5,000 unit/mL INJ 1 mL 5000 UNIT SUBCUT ×2 (01:34→09:44)
[2019-07-07 03:00] VITALS: RESP 17
[2019-07-07] MEDS: ondansetron 2 mg/ML SDV 2 mL 4 MG IVP (03:00)
[2019-07-07] MEDS: morphine 4 mg/mL SDV 1 mL IVP (03:00)
[2019-07-07] MEDS: diphenhydrAMINE 50 mg/mL SDV 1mL 25 MG IVP (03:00)
[2019-07-07 04:00] VITALS: BP 165/83; PULSE 66; RESP 18; TEMP 36.9; O2SAT 95
--- NOTE | 2019-07-07 06:43 | PM.PN ---
Subjective Subjective: Interval history: Patient overall tolerating by mouth intake and passing gas Vitals/I&O/Wt Last Vital Signs Temp 98.5 F 07/07/19 04:00 Pulse 66 07/07/19 04:00 Resp 18 07/07/19 04:00 BP 165/83 07/07/19 04:00 Pulse Ox 95 07/07/19 04:00 07/06/19 07/06/19 07/07/19 14:59 22:59 06:59 Intake Total 1528.333 / 7495.909 8338.000 / 3398.333 Balance 1528.333 / 9691.567 0702.000 / 3398.333 Physical Exam Const: COMMON NORMALS: no apparent distress and oriented x3 GENERAL APPEARANCE: cooperative ORIENTATION/CONSCIOUSNESS: Yes awake, Yes oriented to person, Yes oriented to place and Yes oriented to time Eye: COMMON NORMALS: PERRL and no scleral icterus PUPIL: Yes PERRL GI: COMMON NORMALS: soft to palpation; negative for no hepatosplenomegaly INSPECTION: Yes normal to inspection PALPATION: Yes soft, No firm, No tender, No guarding, No rigid and No no hepatosplenomegaly Neuro: COMMON NORMALS: oriented x3 SENSORIUM/ORIENTATION: Yes oriented to person, Yes oriented to place and Yes oriented to time Skin: COMMON NORMALS: no rashes or lesions noted GENERAL SKIN EXAM: no rashes or lesions noted Data : 07/06/19 05:44 07/06/19 05:44 Micro: Microbiology 07/05/19 12:27 Urine Culture - Preliminary Urine,Clean Catch A&P Assessment and plan (1) Small bowel obstruction: Resolving small bowel I did offer the patient a glycerin suppository and/or milk of molasses enema to help her have a bowel movement Encourage ambulation Assurance and education All questions have been answered Patient can be discharged home from surgical standpoint of view once she feels comfortable leaving Return to surgery office as needed Thank you for consulting general surgery to participate taking care Ms. Nam Status: Acute Code(s): K56.609 - Unspecified intestinal obstruction, unspecified as to partial versus complete obstruction Attestations Medical Necessity Statement*: Medical necessity care is expected to cross 2 midnights Time Spent in Patient Care: less than 15 minutes (>than 50% of time spent in counselling and/or direct pt care on unit). Coding Level of Care Code Acute Lead Advisor for Chg Fwd Diagnoses Small bowel obstruction K56.609
[2019-07-07 07:37] VITALS: BP 149/75; PULSE 66; RESP 18; TEMP 36.7; O2SAT 93
[2019-07-07] MEDS: glycerin adult supp 1 EACH PR (09:44)
[2019-07-07] MEDS: diphenhydrAMINE 25 mg Capsule PO (09:52)
[2019-07-07 11:16] VITALS: BP 167/91; PULSE 79; RESP 20; TEMP 36.9; O2SAT 96
[2019-07-07] MEDS: ALPRAZolam 0.25 mg Tablet PO (12:28)
[2019-07-07 14:36] VITALS: BP 167/91; PULSE 79; RESP 20; TEMP 36.9; O2SAT 96
--- NOTE | 2019-07-07 15:11 | PC.NURSE ---
Discharge instructions given per physician's orders. Patient verbalized understanding and did not have any further questions.
--- NOTE | 2019-07-07 20:37 | PM.DCS ---
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 She initially had NGT placed which she pulled out and was later managed conservatively with bowel rest. She improved gradually during course of admission, diet was advanced as tolerated. She no longer has any nausea or vomiting and is passing flatus. There was initially concernf or UTI however this specimen was likely contaminated given multiple epithelial cells on UA and lack of symptoms of UTI. Patient does report vaginal itching with h/o vulvolvaginal candidiasis for which she is being given empiric fluconazole upon discharge. She received one dose of ceftriaxone inpatient which was disocntinued. Other notable events included development of rash and itching, resolved with benadryl. This was likely 2/2 morphine vs ceftriaxone, however latter seems less likely given that she has tolerated b lactams including cephalosporins in the past. Physical Exam Narrative: EXAM NARRATIVE: GEN: Awake, alert and oriented, no acute distress CVS: S1S2 N RS: CTA B/L except crackles over RUL Abd: Soft, nt/nd , bs+ MECHANIC DRIVER: no focal neuro deficits Discharge Data Data Completed and Pending: Completed Studies During Hospitalization Category Date Time Status CT abdomen pelvis w con* [id number] Urge nt Cat Scan 07/04/19 23:57 Completed XR abdomen 1V* [id number] Stat Exams 07/05/19 03:27 Completed Vitals: Last Vital Signs Temp 98.4 F 07/07/19 14:36 Pulse 79 07/07/19 14:36 Resp 20 H 07/07/19 14:36 BP 167/91 07/07/19 14:36 Pulse Ox 96 07/07/19 14:36 Discharge Plan Discharge Patient Disposition: Home, Self-Care Condition: Stable Prescriptions: New alprazolam 0.25 mg Tablet 0.25 mg PO TID PRN (Reason: Anxiety) 7 Days Qty: 21 RF: 0 fluconazole 150 mg tablet 150 mg PO Q3D Qty: 2 RF: 0 Continued melatonin 10 mg capsule 10 mg PO ONCE RF: 0 diphenhydramine HCl [Benadryl] 25 mg capsule 25 mg PO ONCE PRN (Reason: sleep) RF: 0 cyanocobalamin (vitamin B-12) 1,000 mcg capsule 1,000 mcg PO ONCE RF: 0 lqymbwa-wihzkwxhs-cfhd 333-133-8.3 mg tablet PO DAILY RF: 0 famotidine 10 mg tablet 10 mg PO ONCE PRN (Reason: Abdominal Discomfort) RF: 0 hydromorphone 4 mg tablet 4 mg PO .one as needed PRN (Reason: pain) 30 Days Qty: 4 RF: 0 ondansetron HCl [Zofran] 8 mg tablet 8 mg PO Q12H 90 Days Qty: 180 RF: 1 propranolol 80 mg tablet 80 mg PO BID 90 Days Qty: 180 RF: 1 tizanidine 4 mg tablet 8 mg PO .four times daily PRN (Reason: muscle spasticity) 90 Days Qty: 220 RF: 1 Changed oxycodone 30 mg tablet 30 mg PO BID PRN (Reason: pain) 30 Days Qty: 150 RF: 0 Discharge Orders: Discharge Order (Routine); Ordered 07/07/19 Ordered By: Yamile Peterson Referrals: Ozzy Valle MD [Physician] - (Please follow up with Dr. Valle as needed. ) Abram Crump NP [Primary Care Provider] - (Please follow up with Tasia Andrade NP July 12, 2019 at 2:30.) Discharge Diet: Advance as tolerated and Usual diet Discharge Activity: Resume usual activity Patient Instructions: Alprazolam (By mouth), Fluconazole (By mouth), Migraine Headache (DC), Narcotic Pain Management (DC), Bowel Obstruction (DC) Discharge Date/Time: 07/07/19 15:12 Discharge Attestations Time Spent in Discharge Care*: less than 30 min Quality Metrics Clinical Quality Measures During this hospital stay, did patient experience: None Coding Level of Care Code Acute Semiconductor Wafers Etch Operator for Chg Fwd Diagnoses Small bowel obstruction K56.609
== END 2019-07-07 15:12 | disposition home or self-care (01) | DRG 390 ==
LOC: ER 23:52 → MEDSURG 07-05 01:55
PROVIDERS: Emergency Medicine; Internal Medicine; Admitting Provider Hospitalist; Emergency Provider Emergency Medicine; PCP Nurse Practitioner Family; Visit Provider Student in an Organized Health Care Education/Training Program
DX: K56.600 Partial intestinal obstruction, unspecified as to cause (principal); M48.02 Spinal stenosis, cervical region; G89.29 Other chronic pain; M54.5 Low back pain; G43.709 Chronic migraine without aura, not intractable, without status migrainosus; Z90.49 Acquired absence of other specified parts of digestive tract; Z90.81 Acquired absence of spleen; Z79.891 Long term (current) use of opiate analgesic; B37.3 Candidiasis of vulva and vagina
CPT/HCPCS: 12345; 36415; 74018; 74177; 80048; 80053; 81001; 83605; 83690; 83880; 85025; 87086; 96360; 96372; 96375; 99283; A9270; J0696; J1200; J1644; J2060; J2270; J2405; J2765; J3490; J7030; Q9967

== ENCOUNTER → 2019-07-26 13:44 | Outpatient (BNVA) | payer MEDICARE, SELFPAY | PROVIDERS: PCP Nurse Practitioner Family; Visit Provider Anesthesiology | DX: G89.29 Other chronic pain (principal); M48.02 Spinal stenosis, cervical region; M54.5 Low back pain; Z79.891 Long term (current) use of opiate analgesic | CPT/HCPCS: 99214 ==

== ENCOUNTER → 2019-11-11 13:50 | Outpatient (BNVA) | payer MEDICARE, SELFPAY | PROVIDERS: PCP Nurse Practitioner Family; Visit Provider Anesthesiology | DX: G89.29 Other chronic pain (principal); M48.02 Spinal stenosis, cervical region; G43.709 Chronic migraine without aura, not intractable, without status migrainosus; M54.5 Low back pain; Z79.891 Long term (current) use of opiate analgesic; G62.9 Polyneuropathy, unspecified | CPT/HCPCS: 99214 ==

== ENCOUNTER → 2020-01-11 13:41 | Outpatient (BNVA) | payer MEDICARE, SELFPAY | PROVIDERS: PCP Nurse Practitioner Family; Visit Provider Anesthesiology | DX: G89.29 Other chronic pain (principal); M48.02 Spinal stenosis, cervical region; G43.709 Chronic migraine without aura, not intractable, without status migrainosus; M54.5 Low back pain; G62.9 Polyneuropathy, unspecified; Z79.891 Long term (current) use of opiate analgesic | CPT/HCPCS: 99214 ==

== ENCOUNTER → 2020-03-07 13:43 | Outpatient (BNVA) | payer MEDICARE, SELFPAY | PROVIDERS: PCP Nurse Practitioner Family; Visit Provider Anesthesiology | DX: G89.29 Other chronic pain (principal); M54.5 Low back pain; M48.02 Spinal stenosis, cervical region; G43.709 Chronic migraine without aura, not intractable, without status migrainosus; G62.9 Polyneuropathy, unspecified; Z79.891 Long term (current) use of opiate analgesic | CPT/HCPCS: 99213; 99214 ==

== ENCOUNTER → 2020-05-16 10:19 | Outpatient (BNVA) | payer MEDICARE, SELFPAY | PROVIDERS: PCP Nurse Practitioner Family; Visit Provider Anesthesiology | DX: M54.5 Low back pain (principal); G89.29 Other chronic pain; M48.02 Spinal stenosis, cervical region; Z79.891 Long term (current) use of opiate analgesic; G62.9 Polyneuropathy, unspecified | CPT/HCPCS: 99214 ==

== ENCOUNTER → 2020-07-04 10:31 | Outpatient (BNVA) | payer MEDICARE, SELFPAY | PROVIDERS: PCP Nurse Practitioner Family; Visit Provider Anesthesiology | DX: G89.29 Other chronic pain (principal); M54.42 Lumbago with sciatica, left side; M48.02 Spinal stenosis, cervical region; G43.709 Chronic migraine without aura, not intractable, without status migrainosus; Z79.891 Long term (current) use of opiate analgesic | CPT/HCPCS: 99214 ==

== ENCOUNTER → 2020-08-12 15:52 | Outpatient (BNVA) | payer MEDICARE, SELFPAY | PROVIDERS: PCP Nurse Practitioner Family; Visit Provider Emergency Medicine | DX: J06.9 Acute upper respiratory infection, unspecified (principal); J02.9 Acute pharyngitis, unspecified | CPT/HCPCS: 87071; 87880 ==

== ENCOUNTER → 2020-08-29 13:55 | Outpatient (BNVA) | payer MEDICARE, SELFPAY | PROVIDERS: PCP Nurse Practitioner Family; Visit Provider Anesthesiology | DX: G89.29 Other chronic pain (principal); M54.42 Lumbago with sciatica, left side; M48.02 Spinal stenosis, cervical region; G43.709 Chronic migraine without aura, not intractable, without status migrainosus; Z79.891 Long term (current) use of opiate analgesic | CPT/HCPCS: 99213; 99214 ==

== ENCOUNTER → 2020-09-25 14:08 | Outpatient (BNVA) | payer MEDICARE, SELFPAY | PROVIDERS: PCP Nurse Practitioner Family; Visit Provider Anesthesiology | DX: G89.29 Other chronic pain (principal); M54.42 Lumbago with sciatica, left side; M48.02 Spinal stenosis, cervical region; G43.709 Chronic migraine without aura, not intractable, without status migrainosus; Z79.891 Long term (current) use of opiate analgesic | CPT/HCPCS: 99213; 99214 ==

== ENCOUNTER → 2020-11-13 13:24 | Outpatient (BNVA) | payer MEDICARE, SELFPAY | PROVIDERS: PCP Nurse Practitioner Family; Visit Provider Nurse Practitioner | DX: G89.29 Other chronic pain (principal); M54.5 Low back pain; M48.02 Spinal stenosis, cervical region; G43.709 Chronic migraine without aura, not intractable, without status migrainosus; G62.9 Polyneuropathy, unspecified; Z79.891 Long term (current) use of opiate analgesic | CPT/HCPCS: 99214 ==

== ENCOUNTER → 2021-01-11 13:45 | Outpatient (BNVA) | payer MEDICARE, SELFPAY | PROVIDERS: PCP Nurse Practitioner Family; Visit Provider Nurse Practitioner | DX: G89.29 Other chronic pain (principal); M54.5 Low back pain; M48.02 Spinal stenosis, cervical region; G43.709 Chronic migraine without aura, not intractable, without status migrainosus; G62.9 Polyneuropathy, unspecified; Z79.891 Long term (current) use of opiate analgesic | CPT/HCPCS: 99213 ==

== ENCOUNTER → 2021-03-07 14:01 | Outpatient (BNVA) | payer MEDICARE, SELFPAY | PROVIDERS: PCP Nurse Practitioner Family; Visit Provider Anesthesiology | DX: G89.29 Other chronic pain (principal); M54.50 Low back pain, unspecified; M48.02 Spinal stenosis, cervical region; G43.709 Chronic migraine without aura, not intractable, without status migrainosus; Z79.891 Long term (current) use of opiate analgesic; Z79.899 Other long term (current) drug therapy | CPT/HCPCS: 99214 ==

== ENCOUNTER 2021-04-10 13:24 | Inpatient (IN) | payer MEDICARE, SELFPAY ==
[2021-04-10] VITALS (9 sets, daily range): BP systolic 153–185; BP diastolic 80–108; PULSE 67–81; RESP 16–22; TEMP 36.9; O2SAT 95–98; BMI 44.9
--- NOTE | 2021-04-10 14:09 | PC.NURSE ---
Pt c/o about pain and there is something wrong . Notified CN of pt's concerns. Blood drawn and sent to lab and Urine cup given to pt for UA
[2021-04-10 14:16] LABS: Basophils # 0.1 10^3/uL (0.0-0.1); Basophils % 0.4 %; Eosinophils # 0.1 10^3/uL (0.0-0.8); Hematocrit 42.3 % (37.0-47.0); Hemoglobin 15.3 g/dL (11.5-15.3); Lymphocytes # 1.4 10^3/uL (0.8-4.8); Lymphocytes % 10.4 %; Mean Corpuscular HGB Conc 36.2 g/dL (30.0-36.0); Mean Corpuscular Hemoglobin 35.2 pg (28.0-34.0); Mean Corpuscular Volume 97.2 fl (81-99); Mean Platelet Volume 10.1 fL (7.4-10.4); Monocytes # 0.9 10^3/uL (0.2-0.9); Monocytes % 6.8 %; Neutrophils # 11.03 10^3/uL (1.8-7.7); Neutrophils % 81.1 %; Nucleated Red Blood Cells % 0 %; Platelet Count 336 10^3/cmm (130-400); Red Blood Count 4.35 10^6/uL (4.1-5.3); White Blood Count 13.6 10^3/uL (4.0-10.0)
[2021-04-10 14:31] LABS: Alanine Aminotransferase 17 U/L (0-33); Albumin Level 4.2 g/dL (3.5-5.2); Alkaline Phosphatase 45 IU/L (35-105); Aspartate Amino Transferase 20 U/L (0-32); Blood Urea Nitrogen 8 mg/dL (6-20); Calcium 9.4 mg/dL (8.5-10.5); Carbon Dioxide 23 mmol/L (22-29); Chloride 101 mmol/L (98-107); Globulin 3.7 g/dL (1.3-4.6); Glomerular Filtration Rate 129.6 mL/min (90-130); Glucose 105 mg/dL (65-115); Lipase 55 U/L (13-60); Osmolality Calculated 283 mOsm/kg (285-295); Sodium 137 mmol/L (136-145); Total Bilirubin 0.8 mg/dL (0.15-1.2); Total Protein 7.9 g/dL (6.6-8.7)
[2021-04-10 14:33] LABS: HCG, Serum Qual Negative (Negative)
--- NOTE | 2021-04-10 14:41 | CTR_ITS ---
PROCEDURE INFORMATION: Exam: CT Abdomen And Pelvis With Contrast Exam date and time: 04/10/2021 2:41 PM Age: 50 years old Clinical indication: Nausea and vomiting; Abdominal pain; Prior surgery; Surgery type: Gb, , spleen; Additional info: Abdominal pain, vomiting; HX obstruction TECHNIQUE: Imaging protocol: Computed tomography of the abdomen and pelvis with contrast. Axial, coronal and sagittal reformatted images were created and reviewed. Radiation optimization: All CT scans at this facility use at least one of these dose optimization techniques: automated exposure control; mA and/or kV adjustment per patient size (includes targeted exams where dose is matched to clinical indication); or iterative reconstruction. Contrast material: OMNI 300; Contrast volume: 95 ml; Contrast route: INTRAVENOUS (IV); COMPARISON: CT abdomen pelvis w con* [id number] 07/05/2019 12:45 AM RADIATION DOSE METRICS: Total DLP (mGy-cm): 1857.51 FINDINGS: Liver: Diffuse hepatic steatosis. Gallbladder and bile ducts: Status post cholecystectomy. No biliary ductal dilatation. Pancreas: Mild fatty atrophy of the pancreas. Spleen: Unremarkable. Adrenal glands: Normal. No mass. Kidneys and ureters: No mass. No radiodense calculi. No hydronephrosis. Stomach and bowel: Multiple mildly dilated, hyperemic loops of proximal small bowel in the upper abdomen with subtle infiltration of the mesenteric fat and decompressed loops of distal small bowel. No definite bowel wall thickening. No pneumatosis. Appendix: Normal. Intraperitoneal space: Trace ascites. No organized collection. No free air. Vasculature: Unremarkable. No aneurysm. Lymph nodes: No pathologically enlarged lymph nodes. Urinary bladder: Unremarkable as visualized. Reproductive: Lobular, mildly heterogeneous uterus, likely due to fibroids. Probable cervical nabothian cyst. Bones/joints: No acute osseous abnormality. Mild degenerative changes. Soft tissues: Unremarkable. CT/CT abdomen pelvis w con* [id number] IMPRESSION: 1. Multiple mildly dilated, hyperemic loops of proximal small bowel in the upper abdomen with subtle infiltration of the mesenteric fat and decompressed loops of distal small bowel, suggestive of partial small bowel obstruction. Query adhesions. 2. Additional findings, as above. Radiation Dose CTDIVOL = (mGy): DLP = 1857.51 (mGy-cm)
--- NOTE | 2021-04-10 14:47 | ED_ITS ---
Documented by User: DARSHAN Alfonso 04/10/21 15:07 HPI - Abdominal Pain General: Chief Complaint: Abdominal Pain Stated Complaint: ABD PAIN Time Seen by Provider: 04/10/21 14:41 Source: patient Mode of arrival: wheelchair Limitations: no limitations History of Present Illness: HPI narrative: Patient is a nice 50-year-old female who presents to ED today with complaint of severe abdominal pain, nausea, vomiting. 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 Patient states she was admitted here last year for a small bowel obstruction. Patient tells me around 8 AM she began developing severe abdominal pain has had multiple episodes of non-bloody non-bilious emesis. Last bowel movement was yesterday. She states she has passed a small amount of gas today. No fevers. No recent injury or trauma. MD elicited complaint: abdominal pain and other (N/V) Onset (ago): hour(s) Pain Consistency: constant Location: Diffuse Severity: severe Quality: cramping and sharp Radiation: none Migration to: no migration Relieving factors: nothing Associated Symptoms: Reports nausea and vomiting; Denies chills, coffee ground emesis, diarrhea, dysuria, fever(s) and hematemesis Related Data: Patient : No Review of Systems Const: Denies: fever(s), chills, body aches, fatigue or malaise Card: Denies: chest pain Resp: Denies: dyspnea GI: Reports: abdominal pain, nausea and vomiting; Denies: hematemesis, coffee ground emesis or diarrhea : Denies: flank pain or dysuria Musc: Denies: neck pain or back pain Neuro: Denies: headache(s) or dizziness [facility] ED PFSH: Medical History (Updated 04/10/21 @ 17:47 by Tomás Rolle DO) Cervical stenosis of spine Chronic lumbosacral pain Chronic migraine w/o aura w/o status migrainosus, not intractable On propranolol prophylaxis Chronic narcotic use Encounter for long-term opiate analgesic use Status post fracture of femur left leg bone Surgical History S/P section S/P cholecystectomy S/P exploratory laparotomy abdominal surgery S/P splenectomy S/P tubal ligation Family History Mother Hypertension Social History Second hand smoke exposure: No Alcohol intake: current Alcohol intake frequency: holidays/special occasions only History of recent travel: No Female Reproductive History: Para: 2 Physical Exam Const: COMMON NORMALS: patient oriented x3, no limitations and alert GENERAL APPEARANCE: cooperative NUTRITIONAL APPEARANCE: obese morbidly obese ORIENTATION/CONSCIOUSNESS: Yes awake, Yes oriented to person, Yes oriented to place and Yes oriented to time OTHER: pt appears very uncomfortable secondary to pain, she was actively vomiting in WR thus taking to a VF room to initiate care, she is diaphoretic HENMT: COMMON NORMALS: normocephalic and atraumatic HEAD & SCALP: normocephalic and atraumatic Resp: COMMON NORMALS: normal respiratory effort and clear to auscultation bilaterally AUSCULTATION: clear to auscultation bilaterally Cardio: COMMON NORMALS: regular rate and regular rhythm RATE: regular rate RHYTHM: regular rhythm GI: INSPECTION: Yes scar (previous midline scar and open cholecystectomy scar) AUSCULTATION: Yes Absent bowel sounds PALPATION: Yes Tenderness to palpation present (GI) (diffuse) and Yes Guarding due to palpation present (GI) Neuro: COMMON NORMALS: patient oriented x3 SENSORIUM/ORIENTATION: Yes alert, Yes oriented to person, Yes oriented to place and Yes oriented to time Skin: COMMON NORMALS: no rashes or lesions noted NARRATIVE SKIN EXAM: pt is diaphoretic GENERAL SKIN EXAM: no rashes or lesions noted TRAUMA: no lacerations or abrasions Course Vital Signs: Vital signs: Vital Signs Temperature 98.4 F 04/10/21 13:30 Pulse Rate 81 04/10/21 15:26 Respiratory Rate 16 04/10/21 15:26 Blood Pressure 173/92 04/10/21 17:18 Pulse Oximetry 96 04/10/21 16:11 MDM - Abdominal Pain MDM Narrative: Medical decision making narrative: Patient's care was initiated from vertical flow as there currently were no beds available and patient was visibly uncomfortable in the waiting room with active emesis. She was eventually moved to a room and Dr. Rolle will assume care. Lab Data: Labs: Lab Results 04/10/21 04/10/21 04/10/21 14:00 14:00 14:00 WBC 13.6 10^3/uL H 10 ^3/uL (4.0-10.0) RBC 4.35 10^6/uL 10^6 /uL (4.1-5.3) Hgb 15.3 g/dL g/dL (11.5-15.3) Hct 42.3 % % (37.0-47.0) MCV 97.2 fl fl (81-99) MCH 35.2 pg H pg (28.0-34.0) MCHC 36.2 g/dL H g/dL (30.0-36.0) RDW 12.0 % L % (12.1-15.1) Plt Count 336 10^3/cmm 10^3 /cmm (130-400) MPV 10.1 fL fL (7.4-10.4) Neut % (Auto) 81.1 % % Lymph % (Auto) 10.4 % % [place] % (Auto) 6.8 % % Eos % (Auto) 1.0 % % Baso % (Auto) 0.4 % % Neut # (Auto) 11.03 10^3/uL H 1 0^3/uL (1.8-7.7) Lymph # (Auto) 1.4 10^3/uL 10^3/ uL (0.8-4.8) [place] # (Auto) 0.9 10^3/uL 10^3/ uL (0.2-0.9) Eos # (Auto) 0.1 10^3/uL 10^3/ uL (0.0-0.8) Baso # (Auto) 0.1 10^3/uL 10^3/ uL (0.0-0.1) Nucleated RBC % (a uto) 0 % % Nucleated RBCs # 0.0 /100WBC /100W BC Sodium 137 mmol/L mmol/L (136-145) Potassium 4.0 mmol/L mmol/L (3.5-5.1) Chloride 101 mmol/L mmol/L (98-107) Carbon Dioxide 23 mmol/L mmol/L (22-29) Anion Gap 17.0 (5-19) BUN 8 mg/dL mg/dL (6-20) Creatinine 0.5 mg/dL mg/dL (0.5-0.9) GFR Calculation 129.6 mL/min mL/m in (90-130) Glucose 105 mg/dL mg/dL (65-115) Calculated Osmolal ity 283 mOsm/kg L mOs m/kg (285-295) Lactic Acid Calcium 9.4 mg/dL mg/dL (8.5-10.5) Total Bilirubin 0.8 mg/dL mg/dL (0.15-1.2) AST 20 U/L U/L (0-32) ALT 17 U/L U/L (0-33) Alkaline Phosphata se 45 IU/L IU/L (35-105) Total Protein 7.9 g/dL g/dL (6.6-8.7) Albumin 4.2 g/dL g/dL (3.5-5.2) Globulin 3.7 g/dL g/dL (1.3-4.6) Lipase 55 U/L U/L (13-60) HCG, Qual Negative (Negative) Urine Color Urine Appearance Urine pH Ur Specific Gravit y Urine Protein Urine Glucose (UA) Urine Ketones Urine Blood Urine Nitrate Urine Bilirubin Prot Sulfosalicyli c Acd Urine Urobilinogen Ur Leukocyte Jenny ase 04/10/21 04/10/21 16:00 16:45 WBC RBC Hgb Hct MCV MCH MCHC RDW Plt Count MPV Neut % (Auto) Lymph % (Auto) [place] % (Auto) Eos % (Auto) Baso % (Auto) Neut # (Auto) Lymph # (Auto) [place] # (Auto) Eos # (Auto) Baso # (Auto) Nucleated RBC % (a uto) Nucleated RBCs # Sodium Potassium Chloride Carbon Dioxide Anion Gap BUN Creatinine GFR Calculation Glucose Calculated Osmolal ity Lactic Acid 1.2 mmol/L mmol/L (0.5-2.2) Calcium Total Bilirubin AST ALT Alkaline Phosphata se Total Protein Albumin Globulin Lipase HCG, Qual Urine Color Yellow (Yellow) Urine Appearance Clear (CLEAR) Urine pH 9 H (5-7) Ur Specific Gravit y 1.015 (1.005-1.030) Urine Protein Neg (Negative) Urine Glucose (UA) Norm (Normal) Urine Ketones Negative (Negative) Urine Blood Neg (Negative) Urine Nitrate Negative (Negative) Urine Bilirubin Neg (Negative) Prot Sulfosalicyli c Acd Negative (Negative) Urine Urobilinogen Norm mg/dL mg/dL (Negative) Ur Leukocyte Jenny ase Negative (Negative) Discharge Plan Discharge Patient Disposition: Admitted As Inpatient Clinical Impression: Small bowel obstruction, Chronic lumbosacral pain, Peripheral neuropathy, Cervical stenosis of spine, HTN (hypertension) Condition: Stable Prescriptions: No Action melatonin 10 mg capsule 10 mg PO BEDTIME RF: 0 diphenhydramine HCl [Benadryl] 25 mg capsule 50 mg PO BEDTIME PRN (Reason: sleep) RF: 0 cyanocobalamin (vitamin B-12) 1,000 mcg capsule 1,000 mcg PO DAILY PRN (Reason: UNKNOWN) RF: 0 [id number] [id number] mg tablet 1 tab PO DAILY PRN (Reason: unknown) RF: 0 propranolol 80 mg tablet 80 mg PO BID 90 Days Qty: 180 RF: 0 ondansetron HCl 8 mg tablet 8 mg PO Q12H 90 Days Qty: 180 RF: 0 Pepcid AC 20 mg Tablet 20 mg PO DAILY PRN (Reason: Heartburn) RF: 0 tizanidine 4 mg tablet 8 mg PO QID PRN (Reason: muscle spasticity) RF: 0 oxycodone 30 mg tablet 30 mg PO 5XD PRN (Reason: pain) RF: 0 hydromorphone 4 mg tablet 4 mg PO DAILY PRN (Reason: pain) RF: 0 Referrals: Abram Crump DIRECTOR LIFE [Primary Care Provider] - Coding Level of Care Code ED Director Of Customer Service for Chg Fwd Exam Detailed Documented by User: Tomás Rolle DO 04/10/21 17:47 HPI - Abdominal Pain General: Chief Complaint: Abdominal Pain Stated Complaint: ABD PAIN Time Seen by Provider: 04/10/21 14:41 History of Present Illness: Associated Symptoms: Reports nausea and vomiting; Denies bloating, chills, coffee ground emesis, constipation, diarrhea, dysuria, fever(s), hematochezia, hematemesis and melena Review of Systems Const: Denies: fever(s), chills, body aches, change in appetite, fatigue or malaise ENMT: Denies: throat pain, ear or mastoid pain, nasal discharge or nasal congestion Card: Denies: chest pain, edema, dyspnea on exertion or orthopnea Resp: Denies: dyspnea, productive cough or non-productive cough GI: Reports: abdominal pain, nausea and vomiting; Denies: hematemesis, coffee ground emesis, diarrhea, constipation, bloating, hematochezia or melena : Denies: flank pain, difficulty voiding, dysuria, urinary frequency or urinary urgency Skin/Breast: Denies: rash or pruritus PFSH ED PFSH: Medical History (Updated 04/10/21 @ 17:47 by Tomás Rolle DO) Cervical stenosis of spine Chronic lumbosacral pain Chronic migraine w/o aura w/o status migrainosus, not intractable On propranolol prophylaxis Chronic narcotic use Encounter for long-term opiate analgesic use Status post fracture of femur left leg bone Surgical History S/P section S/P cholecystectomy S/P exploratory laparotomy abdominal surgery S/P splenectomy S/P tubal ligation Family History Mother Hypertension Social History Second hand smoke exposure: No Alcohol intake: current Alcohol intake frequency: holidays/special occasions only History of recent travel: No Physical Exam Const: GENERAL APPEARANCE: cooperative ORIENTATION/CONSCIOUSNESS: Yes awake, Yes oriented to person, Yes oriented to place and Yes oriented to time HENMT: COMMON NORMALS: normocephalic, atraumatic and hearing grossly normal bilaterally HEAD & SCALP: normocephalic and atraumatic Neck/C-Spine: COMMON NORMALS: no JVD Resp: COMMON NORMALS: normal respiratory effort, No retractions, No use of accessory muscles and clear to auscultation bilaterally AUSCULTATION: clear to auscultation bilaterally Cardio: COMMON NORMALS: no JVD, regular rate, regular rhythm and No murmurs present (Cardio) RATE: regular rate RHYTHM: regular rhythm GI: AUSCULTATION: Yes Hypoactive bowel sounds present PALPATION: Yes Tenderness to palpation present (GI) PERCUSSION: tympanic to percussion Extremity: COMMON NORMALS: normal to inspection, capillary refill normal, no clubbing, cyanosis or edema, no calf tenderness and no pedal edema Neuro: SENSORIUM/ORIENTATION: Yes oriented to person, Yes oriented to place and Yes oriented to time Skin: COMMON NORMALS: no rashes or lesions noted GENERAL SKIN EXAM: no rashes or lesions noted Course 2 Vital Signs: Vital signs: Vital Signs Temperature 98.4 F 04/10/21 13:30 Pulse Rate 81 04/10/21 15:26 Respiratory Rate 16 04/10/21 15:26 Blood Pressure 173/92 04/10/21 17:18 Pulse Oximetry 96 04/10/21 16:11 MDM - Abdominal Pain Lab Data: Labs: Lab Results 04/10/21 04/10/21 04/10/21 14:00 14:00 14:00 WBC 13.6 10^3/uL H 10 ^3/uL (4.0-10.0) RBC 4.35 10^6/uL 10^6 /uL (4.1-5.3) Hgb 15.3 g/dL g/dL (11.5-15.3) Hct 42.3 % % (37.0-47.0) MCV 97.2 fl fl (81-99) MCH 35.2 pg H pg (28.0-34.0) MCHC 36.2 g/dL H g/dL (30.0-36.0) RDW 12.0 % L % (12.1-15.1) Plt Count 336 10^3/cmm 10^3 /cmm (130-400) MPV 10.1 fL fL (7.4-10.4) Neut % (Auto) 81.1 % % Lymph % (Auto) 10.4 % % [place] % (Auto) 6.8 % % Eos % (Auto) 1.0 % % Baso % (Auto) 0.4 % % Neut # (Auto) 11.03 10^3/uL H 1 0^3/uL (1.8-7.7) Lymph # (Auto) 1.4 10^3/uL 10^3/ uL (0.8-4.8) [place] # (Auto) 0.9 10^3/uL 10^3/ uL (0.2-0.9) Eos # (Auto) 0.1 10^3/uL 10^3/ uL (0.0-0.8) Baso # (Auto) 0.1 10^3/uL 10^3/ uL (0.0-0.1) Nucleated RBC % (a uto) 0 % % Nucleated RBCs # 0.0 /100WBC /100W BC Sodium 137 mmol/L mmol/L (136-145) Potassium 4.0 mmol/L mmol/L (3.5-5.1) Chloride 101 mmol/L mmol/L (98-107) Carbon Dioxide 23 mmol/L mmol/L (22-29) Anion Gap 17.0 (5-19) BUN 8 mg/dL mg/dL (6-20) Creatinine 0.5 mg/dL mg/dL (0.5-0.9) GFR Calculation 129.6 mL/min mL/m in (90-130) Glucose 105 mg/dL mg/dL (65-115) Calculated Osmolal ity 283 mOsm/kg L mOs m/kg (285-295) Lactic Acid Calcium 9.4 mg/dL mg/dL (8.5-10.5) Total Bilirubin 0.8 mg/dL mg/dL (0.15-1.2) AST 20 U/L U/L (0-32) ALT 17 U/L U/L (0-33) Alkaline Phosphata se 45 IU/L IU/L (35-105) Total Protein 7.9 g/dL g/dL (6.6-8.7) Albumin 4.2 g/dL g/dL (3.5-5.2) Globulin 3.7 g/dL g/dL (1.3-4.6) Lipase 55 U/L U/L (13-60) HCG, Qual Negative (Negative) Urine Color Urine Appearance Urine pH Ur Specific Gravit y Urine Protein Urine Glucose (UA) Urine Ketones Urine Blood Urine Nitrate Urine Bilirubin Prot Sulfosalicyli c Acd Urine Urobilinogen Ur Leukocyte Jenny ase 04/10/21 04/10/21 16:00 16:45 WBC RBC Hgb Hct MCV MCH MCHC RDW Plt Count MPV Neut % (Auto) Lymph % (Auto) [place] % (Auto) Eos % (Auto) Baso % (Auto) Neut # (Auto) Lymph # (Auto) [place] # (Auto) Eos # (Auto) Baso # (Auto) Nucleated RBC % (a uto) Nucleated RBCs # Sodium Potassium Chloride Carbon Dioxide Anion Gap BUN Creatinine GFR Calculation Glucose Calculated Osmolal ity Lactic Acid 1.2 mmol/L mmol/L (0.5-2.2) Calcium Total Bilirubin AST ALT Alkaline Phosphata se Total Protein Albumin Globulin Lipase HCG, Qual Urine Color Yellow (Yellow) Urine Appearance Clear (CLEAR) Urine pH 9 H (5-7) Ur Specific Gravit y 1.015 (1.005-1.030) Urine Protein Neg (Negative) Urine Glucose (UA) Norm (Normal) Urine Ketones Negative (Negative) Urine Blood Neg (Negative) Urine Nitrate Negative (Negative) Urine Bilirubin Neg (Negative) Prot Sulfosalicyli c Acd Negative (Negative) Urine Urobilinogen Norm mg/dL mg/dL (Negative) Ur Leukocyte Jenny ase Negative (Negative) Discharge Plan Discharge Patient Disposition: Admitted As Inpatient Clinical Impression: Small bowel obstruction, Chronic lumbosacral pain, Peripheral neuropathy, Cervical stenosis of spine, HTN (hypertension) Condition: Stable Prescriptions: No Action melatonin 10 mg capsule 10 mg PO BEDTIME RF: 0 diphenhydramine HCl [Benadryl] 25 mg capsule 50 mg PO BEDTIME PRN (Reason: sleep) RF: 0 cyanocobalamin (vitamin B-12) 1,000 mcg capsule 1,000 mcg PO DAILY PRN (Reason: UNKNOWN) RF: 0 [id number] 333-133-8.3 mg tablet 1 tab PO DAILY PRN (Reason: unknown) RF: 0 propranolol 80 mg tablet 80 mg PO BID 90 Days Qty: 180 RF: 0 ondansetron HCl 8 mg tablet 8 mg PO Q12H 90 Days Qty: 180 RF: 0 Pepcid AC 20 mg Tablet 20 mg PO DAILY PRN (Reason: Heartburn) RF: 0 tizanidine 4 mg tablet 8 mg PO QID PRN (Reason: muscle spasticity) RF: 0 oxycodone 30 mg tablet 30 mg PO 5XD PRN (Reason: pain) RF: 0 hydromorphone 4 mg tablet 4 mg PO DAILY PRN (Reason: pain) RF: 0 Referrals: Abram Crump DIRECTOR LIFE [Primary Care Provider] - Coding Level of Care Code ED Director Of Customer Service for Chg Fwd Exam Detailed
[2021-04-10] MEDS: ondansetron 2 mg/ML SDV 2 mL 4 MG IVP ×3 (14:54→20:23)
[2021-04-10] MEDS: sodium chloride 0.9% 1,000 ML 999 ML IV (14:55)
--- NOTE | 2021-04-10 15:01 | PC.PHAR ---
PT STATES SHE TAKES CARE OF HER OWN MEDICATIONS-PT VERIFIED HER MEDICATIONS
[2021-04-10] MEDS: HYDROmorphone 1 mg/mL INJ 1 mL IVP ×3 (15:25→23:44)
[2021-04-10] MEDS: iohexol 300 mg/mL 100 mL Btl IV (15:34)
[2021-04-10 16:37] LABS: Add Urine Microscopic? NO; Charge for UA Resulting for Rev
[2021-04-10 16:43] LABS: Bilirubin Urine Neg (Negative); Blood Urine Neg (Negative); Glucose Urine UA Norm (Normal); Ketones Urine Negative (Negative); Nitrate Urine Negative (Negative); Protein Urine Neg (Negative); Specific Gravity, Urine 1.015 (1.005-1.030); Sulfosalicylic Acid Urine Negative (Negative); Urine Appearance Clear (CLEAR); Urine Color Yellow (Yellow); pH Urine 9 (5-7)
[2021-04-10 16:44] LABS: Leukocyte Esterase Urine Negative (Negative); Urobilinogen Urine Norm (Negative)
[2021-04-10] MEDS: LORazepam 2 mg/mL INJ 1 mL 1 MG IVP ×3 (17:01→21:42)
[2021-04-10] MEDS: cetacaine Spray 5 gm Can 2 SPRAY TOPICAL (17:02)
--- NOTE | 2021-04-10 17:16 | XRR_ITS ---
PROCEDURE INFORMATION: Exam: XR Chest Exam date and time: 04/10/2021 5:16 PM Age: 50 years old Clinical indication: Device placement; Ng tube; Additional info: Ng tube placement TECHNIQUE: Imaging protocol: XR of the chest. Views: 1 view. COMPARISON: CR Chest 2 views* [id number] 11/13/2016 12:55 PM FINDINGS: Tubes, catheters and devices: NG tube in place with its tip in the region of the esophagogastric junction. Lungs: Unremarkable. No consolidation. Pleural spaces: Unremarkable. No pleural effusion. No pneumothorax. Heart/Mediastinum: Unremarkable. No cardiomegaly. Bones/joints: Unremarkable. XR/XR chest 1V portable [id number] IMPRESSION: NG tube in place with its tip in the region of the esophagogastric junction. This should be advanced approximately 10 cm. Radiation Dose CTDIVOL = (mGy): DLP = (mGy-cm)
[2021-04-10 17:27] LABS: Lactic Sepsis W/Reflex 1.2 mmol/L (0.5-2.2)
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
[2021-04-10] MEDS: labetalol 5 mg/mL SDV 20mL 20 MG IVP (22:32)
[2021-04-10] MEDS: D5-NS 0.45% + KCL 20 mEq 20 MEQ/1,000 ML BAG 100 MEQ IV (22:35)
[2021-04-10] MEDS: oxyCODONE IR 30 mg Tablet PO (22:35)
[2021-04-10] MEDS: enoxaparin 40 mg/0.4 mL Syringe SUBCUT (22:35)
[2021-04-10] MEDS: pantoprazole 40 mg SDV IVP (22:36)
[2021-04-10] MEDS: LORazepam 2 mg/mL INJ 1 mL 0.5 MG IVP (23:51)
[2021-04-11] VITALS (10 sets, daily range): BP systolic 126–162; BP diastolic 70–83; PULSE 76–89; RESP 14–18; TEMP 37–37.3; O2SAT 94–97
[2021-04-11] MEDS: ondansetron 2 mg/ML SDV 2 mL 4 MG IVP ×2 (01:33→16:59)
[2021-04-11] MEDS: metoclopramide 5 mg/mL SDV 2 mL IVP (02:26)
[2021-04-11] MEDS: phenol oral Spray 177 mL 3 SPRAY MUCOUS MEM (03:39)
--- NOTE | 2021-04-11 04:12 | PC.NURSE ---
0130 Patient called out saying she was nauseated. Upon entering the room patient was up with NGT and IV stretched across the bed heading to the bathroom, Unhooked patient and helped to the restroom. Nausea medication given. Patient states the NGT is what is making her nauseous. Patient states she does not want the NGT and wants it removed. Educated patient on importance of the NGT and why she has it. Patient agreed to keep tube at this time. Upon further investigation, it was noted patient had a mouth swab with a small amount of water in a cup at bedside, however on return to the patient room to follow up on nausea medication, it was noted that the cup was full of water. Patient denies drinking the water, however the NGT output was 500ml within 3 hours of being on the floor. Thin liquid and light brown in color, educated patient on importance of why she is NPO and to not be drinking water. Patient still complaining of nausea, gave PRN dose of Reglan. Will continue to monitor patient and update physician as needed.
--- NOTE | 2021-04-11 04:13 | PC.NURSE ---
Refused NG tubs: Called in to the room and the pt was c/o of the tube gagging her. Said that she was unable to tolerate the NG tube last time. Explained to the pt that if she wanted it out we would take it out. Also explained the purpose of the NG tube and the potential risks of not having it. Offered to get an order for Chloraseptic spray to see if it would numb the area enough to tolerate, she agreed. She also c/o a headache. This nurse returned to the room with Tylenol PO and Chloraseptic spray. After attempting to swallow one Tylenol tablet the pt began to vomit and then said this is not working, I want it out . NG tube removed.
[2021-04-11] MEDS: oxyCODONE IR 30 mg Tablet PO ×3 (06:07→16:57)
--- NOTE | 2021-04-11 06:15 | PM.CONSULT ---
Providers/Reason For Consult Consulting Physician/Specialty*: General Surgery Rohit Alcantar MD Reason for Consult*: Small bowel obstruction. Attending Physician: Bryan Villarreal MD Primary Care Provider: Abram Crump NP History of Present Illness History of Present Illness Virgen Nam is a 50 year old female who developed some sharp abdominal pain yesterday morning. She then became bloated and nauseated. She said she vomited several times but there was no evidence of hematemesis. The patient eventually came to the emergency room and imaging revealed evidence of at least a partial small bowel obstruction. A nasogastric tube was passed. The patient pulled her nasogastric tube out overnight. She said she actually feels like she is back to normal this morning. She never did stop passing flatus and had 2 normal bowel movements yesterday. Her main concern this morning seems to be getting back on her regular narcotic medications. She would like to try some clear liquids. She was admitted with a similar episode a little over a year ago. She pulled her NG tube out at that time in the first 24 hours and ended up doing well. Review of Systems General: Reports: 10 or more systems reviewed and unremarkable except in HPI and below Const: Denies: fever(s) GI: Reports: abdominal pain (Much better this morning), nausea (Much better this morning) and vomiting (Yesterday); Denies: hematemesis or change in bowel habits Neuro: Reports: headache(s) (History of migraines for which the patient is on chronic narcotics) Meds/Allergies Home Medications and Allergies Home Medications Medication Instructions Recorded Confirmed Last Taken Type cyanocobalamin (vitamin B-12) 1,000 mcg PO DAILY PRN 05/19/19 04/10/21 Unknown History 1,000 mcg capsule diphenhydramine HCl 25 mg capsule 50 mg PO BEDTIME PRN cap 05/19/19 04/10/21 07/03/19 History melatonin 10 mg capsule 10 mg PO BEDTIME 05/19/19 04/10/21 07/03/19 History pbtowfa-[id number] 333 mg-133 1 tab PO DAILY PRN tab 05/27/19 04/10/21 Unknown History mg-8.3 mg tablet ondansetron HCl 8 mg tablet 8 mg PO Q12H 90 Days #180 tab 03/07/21 04/10/21 04/10/21 11:00 Rx propranolol 80 mg tablet 80 mg PO BID 90 Days #180 tab 03/07/21 04/10/21 04/10/21 11:00 Rx famotidine [Pepcid AC] 20 mg PO DAILY PRN 04/10/21 04/10/21 Unknown History hydromorphone 4 mg PO DAILY PRN 04/10/21 04/10/21 04/10/21 History oxycodone 30 mg PO 5XD PRN 04/10/21 04/10/21 04/10/21 13:00 History tizanidine 8 mg PO QID PRN 04/10/21 04/10/21 Unknown History Allergies Allergy/AdvReac Type Severity Reaction Status Date / Time adhesive tape Allergy unknown Verified 04/10/21 14:56 celecoxib [From Celebrex] Allergy difficulty Verified 04/10/21 14:56 breathing duloxetine [From Cymbalta] Allergy difficulty Verified 04/10/21 14:56 breathing erythromycin base Allergy nausea Verified 04/10/21 14:56 morphine Allergy ALGY-Rash Verified 04/10/21 14:56 NSAIDS (Non-Steroidal Allergy upset Verified 04/10/21 14:56 Anti-Inflamma stomach sumatriptan [From Imitrex] Allergy difficulty Verified 04/10/21 14:56 breathing topiramate [From Topamax] Allergy confusion Verified 04/10/21 14:56 venlafaxine [From Effexor] Allergy unknown Verified 04/10/21 14:56 Current Medications Current Medications Generic Name Dose Route Start Last Admin Trade Name Freq PRN Reason Stop Dose Admin Enoxaparin Sodium 40 mg 04/10/21 22:10 04/10/21 22:35 Enoxaparin 40 Mg/0.4 Ml Syringe SUBCUT 40 mg Q24H JELLY Administration Hydromorphone HCl 1 mg 04/10/21 23:30 04/10/21 23:44 Hydromorphone 1 Mg/Ml Inj 1 Ml IVP 1 mg Q8H PRN Administration SEVERE PAIN Potassium Chloride/Dextrose/Sod Cl 20 meq in 1,000 mls @ 100 mls/hr 04/10/21 22:10 04/10/21 22:35 D5-Ns 0.45% + Kcl 20 Meq IV 100 mls/hr .Q10H JELLY Administration Lorazepam 0.5 mg 04/10/21 23:35 04/10/21 23:51 Lorazepam 2 Mg/Ml Inj 1 Ml IVP 0.5 mg Q6H PRN Administration anxiety Metoclopramide HCl 5 mg 04/10/21 22:10 04/11/21 02:26 Metoclopramide 5 Mg/Ml Sdv 2 Ml IVP 5 mg Q6H PRN Administration NAUSEA AND VOMITING Non-Formulary Medication 10 mg 04/10/21 22:10 04/10/21 22:24 Melatonin PO Not Given BEDTIME JELLY Ondansetron HCl 4 mg 04/10/21 22:10 04/11/21 01:33 Ondansetron 2 Mg/Ml Sdv 2 Ml IVP 4 mg Q6H PRN Administration NAUSEA AND VOMITING Oxycodone HCl 30 mg 04/10/21 22:10 04/11/21 06:07 Oxycodone Ir 30 Mg Tablet PO 30 mg 5XD PRN Administration MILD pain Pantoprazole Sodium 40 mg 04/10/21 22:10 04/10/21 22:36 Pantoprazole 40 Mg Sdv IVP 40 mg Q24H JELLY Administration Phenol 3 spray 04/11/21 03:27 04/11/21 03:39 Phenol Oral [place] 177 Ml MUCOUS MEM 3 spray Q2H PRN Administration SORE THROAT PFSH Acute PFSH: Medical History (Updated 04/11/21 @ 06:23 by Rohit Alcantar MD) Cervical stenosis of spine Chronic lumbosacral pain Chronic migraine w/o aura w/o status migrainosus, not intractable On propranolol prophylaxis Chronic narcotic use Encounter for long-term opiate analgesic use History of migraine headaches Status post fracture of femur left leg bone Surgical History (Updated 04/11/21 @ 06:16 by Rohit Alcantar MD) S/P section x 1 S/P cholecystectomy S/P exploratory laparotomy splenectomy due to trauma S/P tubal ligation Skin lesion of back Excision of chronic wound Family History Mother Hypertension Social History Second hand smoke exposure: No Alcohol intake: current Alcohol intake frequency: holidays/special occasions only History of recent travel: No Female Reproductive History: Para: 2 Vitals/I&O/Wt Last Vital Signs Temp 99.1 F 04/11/21 04:00 Pulse 89 04/11/21 04:00 Resp 18 04/11/21 06:07 BP 129/78 04/11/21 04:00 Pulse Ox 97 04/11/21 04:00 04/10/21 04/10/21 04/11/21 14:59 22:59 06:59 Intake Total 1000 / 1000 Balance 1000 / 1000 Weight last 48 hrs Weight 270 lb Physical Exam Narrative: EXAM NARRATIVE: The patient was encountered in her hospital room. She does not appear to be in any distress. The pupils seem equal. No carotid bruits are heard. The lungs are clear anteriorly. The heart is regular. The abdomen is moderately obese and bowel sounds seem to be somewhat hyperactive. It is soft and she has minimal tenderness, however. No obvious masses are palpated. There is a healed laparotomy scar in the upper abdomen. The extremities reveal perhaps some very mild edema. Neurologically she appears to be grossly intact. Data Imaging^: CT Abd/Pel: Radiologist's impression: CAT scan abdomen/pelvis 04/10/2021 IMPRESSION: 1. Multiple mildly dilated, hyperemic loops of proximal small bowel in the upper abdomen with subtle infiltration of the mesenteric fat and decompressed loops of distal small bowel, suggestive of partial small bowel obstruction. A&P Assessment and plan (1) Small bowel obstruction: CT reviewed. I agree with the assessment of a partial small bowel obstruction as of yesterday. Subjectively, the patient says she feels much better today and has already pulled her nasogastric tube out. She continues to pass flatus. She would like to try some clear liquids and I told her I would allow this but I want her to take it very slow, as she still seems to have some hyperactivity with respect to her bowel sounds. She seems to understand and agrees to be cautious. Status: Acute Consult Attestations Medical Necessity Statement: See admitting service's notation. Coding Level of Care Code Acute Pullboat Engineer for Chg Fwd Diagnoses Small bowel obstruction K56.609
[2021-04-11 06:23] LABS: Basophils % 0.1 %; Hematocrit 42.3 % (37.0-47.0); Hemoglobin 13.8 g/dL (11.5-15.3); Lymphocytes # 1.4 10^3/uL (0.8-4.8); Lymphocytes % 9.4 %; Mean Corpuscular HGB Conc 32.6 g/dL (30.0-36.0); Mean Corpuscular Hemoglobin 34.2 pg (28.0-34.0); Mean Corpuscular Volume 104.7 fl (81-99); Mean Platelet Volume 10.4 fL (7.4-10.4); Monocytes # 1.3 10^3/uL (0.2-0.9); Monocytes % 8.4 %; Neutrophils % 81.7 %; Nucleated Red Blood Cells % 0 %; Platelet Count 364 10^3/cmm (130-400); Red Blood Count 4.04 10^6/uL (4.1-5.3); Red Cell Distribution Width 12.1 % (12.1-15.1); White Blood Count 15.1 10^3/uL (4.0-10.0)
[2021-04-11 06:54] LABS: Alanine Aminotransferase 17 U/L (0-33); Alkaline Phosphatase 51 IU/L (35-105); Anion Gap 18.6 (5-19); Aspartate Amino Transferase 20 U/L (0-32); Blood Urea Nitrogen 10 mg/dL (6-20); Calcium 8.5 mg/dL (8.5-10.5); Carbon Dioxide 19 mmol/L (22-29); Chloride 104 mmol/L (98-107); Globulin 3.8 g/dL (1.3-4.6); Glucose 120 mg/dL (65-115); Magnesium 1.8 mg/dL (1.7-2.3); NT Pro B Type Natriuretic Pept 335 pg/mL (0-125); Osmolality Calculated 286 mOsm/kg (285-295); Phosphorus 1.7 mg/dL (2.5-4.5); Potassium 3.6 mmol/L (3.5-5.1); Sodium 138 mmol/L (136-145); Thyroid Stimulating Hormone 0.39 uIU/mL (0.27-4.20); Total Bilirubin 0.7 mg/dL (0.15-1.2); Total Protein 7.8 g/dL (6.6-8.7)
[2021-04-11] MEDS: D5-NS 0.45% + KCL 20 mEq 20 MEQ/1,000 ML BAG 50 MEQ IV (09:17)
[2021-04-11] MEDS: propranolol 40 mg Tablet 80 MG PO ×2 (09:18→17:29)
[2021-04-11] MEDS: amlodipine 10 mg Tablet PO (09:18)
[2021-04-11] MEDS: polyethylene glycol 3350 Pkt 17 gm PO ×2 (12:29→17:29)
[2021-04-11] MEDS: docusate sodium 100 mg Capsule PO ×2 (12:29→17:28)
[2021-04-11] MEDS: LORazepam 2 mg/mL INJ 1 mL 0.5 MG IVP (12:29)
--- NOTE | 2021-04-11 13:15 | P.PN_ITS ---
Subjective Subjective: Interval history: Patient was seen this morning, no fevers, no chills, no nausea, no vomiting, has not had a bowel movement, but is passing gas, is on a clear liquid diet, she removed her NG tube overnight, she is a bit upset as she got all her medications late, she tells me that normally she is on Dilaudid but she uses it fairly sparingly, but she is on regular oxycodone for her back pain, she tells me that she usually has a bowel movement a day, but it is not usually soft Vitals/I&O/Wt Last Vital Signs Temp 98.9 F 04/11/21 07:33 Pulse 89 04/11/21 07:33 Resp 14 04/11/21 12:29 BP 162/81 04/11/21 07:33 Pulse Ox 96 04/11/21 12:29 04/10/21 04/11/21 04/11/21 22:59 06:59 14:59 Intake Total 1000 / 1000 1120 / 1120 Output Total 2 / 2 Balance 1000 / 1000 1118 / 1118 Weight last 48 hrs Weight 122.47 kg Physical Exam Const: COMMON NORMALS: no acute distress and patient oriented x3 Resp: COMMON NORMALS: normal respiratory effort, No retractions, No use of accessory muscles and clear to auscultation bilaterally AUSCULTATION: clear to auscultation bilaterally Cardio: COMMON NORMALS: regular rate, regular rhythm, S1 normal heart sound present and S2 normal heart sound present RATE: regular rate RHYTHM: regular rhythm HEART SOUNDS: S1 normal heart sound present and S2 normal heart sound present GI: COMMON NORMALS: Soft to palpation INSPECTION: Yes normal to inspection and Yes abdominal distension AUSCULTATION: Yes normoactive bowel sounds PALPATION: Yes Soft to palpation and No Tenderness to palpation present (GI) Extremity: COMMON NORMALS: no pedal edema Neuro: COMMON NORMALS: patient oriented x3 Psych: COMMON NORMALS: mental status grossly normal Data : 04/11/21 05:44 04/11/21 05:44 A&P Assessment and plan (1) Small bowel obstruction: -Patient removed NG tube -Is passing flatus, feeling better, has not had a bowel movement, abdomen still distended -Continue clear liquid diet -Decrease IV fluids to 50 cc an hour -Is on chronic opiates, continue home oxycodone -Given that she is on chronic narcotics, start MiraLAX 17 g twice daily with Colace -Serial abdominal exams -Zofran for nausea -Reglan for nausea -Ativan for anxiety -General surgery on consult -Full code -Lovenox for DVT prophylaxis Status: Acute (2) HTN (hypertension): Status: Acute Attestations Medical Necessity Statement*: Patient requires hospitalization, for small bowel obstruction, inpatient, greater than 2 midnights Coding Level of Care Code Acute Art Therapy Certified Supervisor for Dashawn Lopezd Diagnoses Small bowel obstruction K56.609 HTN (hypertension) I10
--- NOTE | 2021-04-11 13:53 | PC.CHAP ---
Pastoral Care Encounter/Spiritual Assessment Type of Contact [] Declined category planner visit [] Patient/Family/Request visit [] Outpatient visit [] Follow-up visit [] Physician referral [] Code/Alert [x] Routine visit [] Staff referral [] Actively dying [] Patient sleeping [] Family support [] [] Out of room [] Palliative care [] [x] Receiving care in room [] Pre-surgical visit [] Trauma [] Long length of stay [] ICU visit [] Other: Relational/Emotional Strength [x] Patient feels connected with others/family/visitors/staff [] Distress [] Loneliness/isolation [] Abandonment Spirituality of Patient [x] Person of Suzie [] Attends Rastafari of their Suzie [x] Believes in Prayer [] Reads Bible or Tenriism materials [] There are Spiritual issues to be addressed R[employer]er Interventions [x] Prayer [x] Active listening [x] Non-anxious presence [x] Spiritual/emotional support [x] Crisis/trauma care [x] Spiritual counseling [] Bereavement support [] Provided bereavement packet [] Provided Bible/devotional materials [] Provided toy/stuffed animal, coloring book to patient or family member [] Provided Communion [] Anointing/Unity [] Salvation [x] Completed spiritual assessment [] Other: Impact on Illness or Injury [] Angry [] Fearful [] Anxious [] Often cries [] Exhaustion [] Unable to work [] Unable to attend mosque [] Unable to walk/stand [] Unable to read [] Unable to drive [] Unable to eat/drink [] Unable to sleep [] Unable to be with family [] Patient intubated [] Other: Summary Blockage bowl has no pain feels good can go home when bowl movement Time spent with patient 10 mins
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
--- NOTE | 2021-04-11 19:40 | PC.NURSE ---
IV removed intact. Patient tolerated well. Patient is A&Ox3. Respirations even and non-labored on room air. Patient states, Can you make a note that while I was here my IV that I had in my left arm last night infiltrated and now the back of my left arm is hurting. I have had ice on and off it all day. Reviewed patient's discharge with patient and significant other. Patient and significant other verbalized understanding. Patient wheel chaired to private car. This nurse discharged this patient for Cassidy SAENZ.
== END 2021-04-11 19:30 | disposition home or self-care (01) | DRG 390 ==
LOC: ER 17:47 → MEDSURG 20:03
PROVIDERS: Physician Assistant; Admitting Provider Family Medicine; Emergency Provider Family Medicine; PCP Nurse Practitioner Family; Visit Provider Family Medicine
DX: K56.609 Unspecified intestinal obstruction, unspecified as to partial versus complete obstruction (principal); R11.2 Nausea with vomiting, unspecified; F41.9 Anxiety disorder, unspecified; G89.29 Other chronic pain; M54.50 Low back pain, unspecified; M48.02 Spinal stenosis, cervical region; G43.709 Chronic migraine without aura, not intractable, without status migrainosus; I10 Essential (primary) hypertension; Z90.81 Acquired absence of spleen; Z87.828 Personal history of other (healed) physical injury and trauma; Z79.891 Long term (current) use of opiate analgesic; Z90.49 Acquired absence of other specified parts of digestive tract
CPT/HCPCS: 36415; 71045; 74177; 80053; 81003; 83605; 83690; 83735; 83880; 84100; 84443; 84703; 85025; 94664; 96372; 96374; 96375; 96376; 99285; C9113; J1170; J1650; J2060; J2405; J2765; J3490; J7030; Q9967

== ENCOUNTER → 2021-06-06 14:43 | Outpatient (BNVA) | payer MEDICARE, SELFPAY | PROVIDERS: PCP Nurse Practitioner Family; Visit Provider Anesthesiology | DX: G89.29 Other chronic pain (principal); M47.816 Spondylosis without myelopathy or radiculopathy, lumbar region; M48.02 Spinal stenosis, cervical region; Z79.891 Long term (current) use of opiate analgesic | CPT/HCPCS: 99214 ==

== ENCOUNTER 2021-11-25 17:14 | Emergency (ER) | payer MEDICARE, SELFPAY ==
[2021-11-25 17:50] VITALS: BP 176/108; PULSE 70; RESP 16; TEMP 36.9; O2SAT 95; BMI 44.1
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
[2021-11-25] MEDS: lidocaine 2% viscous 15 ML, aluminum-mag hydrox-simethicon 30 ML, sucralfate oral liq 1 GM PO (18:28)
[2021-11-25] MEDS: sodium chloride 0.9% 1,000 ML 999 ML IV (18:29)
[2021-11-25 18:30] VITALS: RESP 18; O2SAT 98
[2021-11-25] MEDS: HYDROmorphone 1 mg/mL INJ 1 mL 0.5 MG IVP (18:30)
[2021-11-25] MEDS: ondansetron 2 mg/ML SDV 2 mL 4 MG IVP (18:31)
[2021-11-25 18:32] LABS: Add Urine Microscopic? NO; Charge for UA Resulting for Rev
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
[2021-11-25 18:34] LABS: Basophils # 0.1 10^3/uL (0.0-0.1); Basophils % 0.6 %; Eosinophils # 0.1 10^3/uL (0.0-0.8); Eosinophils % 0.5 %; Hematocrit 43.9 % (37.0-47.0); Hemoglobin 15.4 g/dL (11.5-15.3); Lymphocytes # 1.5 10^3/uL (0.8-4.8); Lymphocytes % 9.7 %; Mean Corpuscular HGB Conc 35.1 g/dL (30.0-36.0); Mean Corpuscular Hemoglobin 34.5 pg (28.0-34.0); Mean Corpuscular Volume 98.4 fl (81-99); Mean Platelet Volume 10.1 fL (7.4-10.4); Monocytes # 0.8 10^3/uL (0.2-0.9); Monocytes % 5.3 %; Neutrophils # 12.76 10^3/uL (1.8-7.7); Neutrophils % 83.4 %; Nucleated Red Blood Cells % 0 %; Platelet Count 387 10^3/cmm (130-400); Red Blood Count 4.46 10^6/uL (4.1-5.3); Red Cell Distribution Width 11.8 % (12.1-15.1); White Blood Count 15.3 10^3/uL (4.0-10.0)
[2021-11-25 18:36] LABS: Bilirubin Urine Neg (Negative); Blood Urine Neg (Negative); Glucose Urine UA Norm (Normal); Ketones Urine Negative (Negative); Leukocyte Esterase Urine Negative (Negative); Nitrate Urine Negative (Negative); Protein Urine Neg (Negative); Specific Gravity, Urine 1.005 (1.005-1.030); Urine Appearance Clear (CLEAR); Urine Color Colorless (Yellow); Urobilinogen Urine Norm (Negative); pH Urine 6 (5-7)
[2021-11-25 18:51] LABS: Alanine Aminotransferase 20 U/L (0-33); Albumin Level 4.6 g/dL (3.5-5.2); Alkaline Phosphatase 56 IU/L (35-105); Anion Gap 17.1 (5-19); Aspartate Amino Transferase 25 U/L (0-32); Blood Urea Nitrogen 9 mg/dL (6-20); Calcium 9.8 mg/dL (8.5-10.5); Carbon Dioxide 24 mmol/L (22-29); Chloride 102 mmol/L (98-107); Globulin 3.6 g/dL (1.3-4.6); Glomerular Filtration Rate 104.6 mL/min (90-130); Glucose 120 mg/dL (65-115); Lipase 14 U/L (13-60); Osmolality Calculated 288 mOsm/kg (285-295); Potassium 4.1 mmol/L (3.5-5.1); Sodium 139 mmol/L (136-145); Total Bilirubin 0.7 mg/dL (0.15-1.2); Total Protein 8.2 g/dL (6.6-8.7)
[2021-11-25 19:56] VITALS: BP 161/99; PULSE 70; RESP 18; O2SAT 96
[2021-11-25 20:54] VITALS: BP 163/97; PULSE 84; RESP 18; TEMP 36.6; O2SAT 98
== END 2021-11-25 20:55 | disposition home or self-care (01) ==
PROVIDERS: Family Medicine; Emergency Provider Emergency Medicine; PCP Family Medicine Adult Medicine
DX: R10.84 Generalized abdominal pain (principal)
CPT/HCPCS: 74176; 80053; 81003; 83690; 85025; 96361; 96374; 96375; 99284; J1170; J2405; J7030

== ENCOUNTER 2022-03-13 15:05 | Outpatient (CLI) | payer MEDICARE, SELFPAY ==
--- NOTE | 2022-03-13 15:17 | MM_ITS ---
WS: [id number] BILATERAL 3D TOMOSYNTHESIS DIGITAL SCREENING MAMMOGRAPHY WITH CAD CLINICAL INFORMATION: last mammo 3 years HISTORY: Screening mammogram. No current complaints. COMPARISON: None. TECHNIQUE: Bilateral CC and MLO views. FINDINGS: Scattered fibroglandular densities bilaterally. No suspicious focal mass, asymmetry, calcifications, or architectural distortion. No evidence of malignancy. MM/[place] [id number] IMPRESSION: BI-RADS: 1-Negative FOLLOW UP: 1 Year Follow-up Recommend return to annual screening mammography.
== END 2022-03-13 15:06 | disposition home or self-care (01) ==
LOC: RAD 15:08
PROVIDERS: PCP Family Medicine Adult Medicine; Visit Provider Family Medicine Adult Medicine
DX: Z12.31 Encounter for screening mammogram for malignant neoplasm of breast (principal)
CPT/HCPCS: 77063; 77067

== ENCOUNTER → 2022-03-21 15:01 | Outpatient (BNVA) | payer MEDICARE, SELFPAY | PROVIDERS: PCP Family Medicine Adult Medicine; Visit Provider Obstetrics & Gynecology | DX: Z78.0 Asymptomatic menopausal state (principal); Z12.4 Encounter for screening for malignant neoplasm of cervix; N84.1 Polyp of cervix uteri; Z01.419 Encounter for gynecological examination (general) (routine) without abnormal findings; N93.9 Abnormal uterine and vaginal bleeding, unspecified | CPT/HCPCS: 83001; 87624 ==

== ENCOUNTER → 2022-04-08 13:11 | Outpatient (BNVA) | payer MEDICARE, SELFPAY | PROVIDERS: PCP Family Medicine Adult Medicine; Visit Provider Obstetrics & Gynecology | DX: N84.1 Polyp of cervix uteri (principal) | CPT/HCPCS: 76830 ==

== ENCOUNTER 2022-04-30 11:23 | Day surgery (SDC) | payer MEDICARE, SELFPAY ==
[2022-04-28 11:25] VITALS: BMI 44.2
[2022-04-28 12:10] LABS: Basophils # 0.1 10^3/uL (0.0-0.1); Basophils % 0.7 %; Eosinophils # 0.2 10^3/uL (0.0-0.8); Eosinophils % 1.7 %; Hematocrit 45.4 % (37.0-47.0); Hemoglobin 15.3 g/dL (11.5-15.3); Lymphocytes # 1.7 10^3/uL (0.8-4.8); Lymphocytes % 14.9 %; Mean Corpuscular HGB Conc 33.7 g/dL (30.0-36.0); Mean Corpuscular Hemoglobin 33.8 pg (28.0-34.0); Mean Corpuscular Volume 100.4 fl (81-99); Mean Platelet Volume 9.7 fL (7.4-10.4); Monocytes # 1.2 10^3/uL (0.2-0.9); Monocytes % 10.5 %; Neutrophils # 8.01 10^3/uL (1.8-7.7); Neutrophils % 71.7 %; Nucleated Red Blood Cells % 0 %; Platelet Count 419 10^3/cmm (130-400); Red Blood Count 4.52 10^6/uL (4.1-5.3); Red Cell Distribution Width 12.1 % (12.1-15.1); White Blood Count 11.2 10^3/uL (4.0-10.0)
[2022-04-28 12:11] LABS: Add Urine Microscopic? NO; Charge for UA Resulting for Rev
[2022-04-28 12:19] LABS: Bilirubin Urine Neg (Negative); Blood Urine Neg (Negative); Glucose Urine UA Norm (Normal); Ketones Urine Negative (Negative); Leukocyte Esterase Urine Negative (Negative); Nitrate Urine Negative (Negative); Protein Urine Neg (Negative); Urine Appearance Clear (CLEAR); Urine Color Yellow (Yellow); Urobilinogen Urine Norm (Negative); pH Urine 7 (5-7)
[2022-04-28 12:31] LABS: Alanine Aminotransferase 18 U/L (0-33); Albumin Level 4.2 g/dL (3.5-5.2); Alkaline Phosphatase 58 U/L (35-105); Anion Gap 14.5 (5-19); Aspartate Amino Transferase 21 U/L (0-32); Blood Urea Nitrogen 11 mg/dL (6-20); Calcium 9.7 mg/dL (8.5-10.5); Carbon Dioxide 26 mmol/L (22-29); Chloride 95 mmol/L (98-107); Globulin 4.3 g/dL (1.3-4.6); Glucose 141 mg/dL (65-115); Osmolality Calculated 276 mOsm/kg (285-295); Potassium 3.5 mmol/L (3.5-5.1); Sodium 132 mmol/L (136-145); Total Bilirubin 0.5 mg/dL (0.15-1.2); Total Protein 8.5 g/dL (6.6-8.7)
--- NOTE | 2022-04-28 17:03 | P.ANESASSM_ITS ---
Pre-Anesthetic Assessment Height/Weight: Height 1.65 m Weight 120.656 kg Preop Diagnosis: Abnormal uterine bleeding, endometrial/endocervical polyp Operation Date: 04/30/22 10:10 Proposed Procedures p Hysteroscopy, polypectomy via Myosure 12492 N95.0,N84.1(Not Applicable) - Jayden Kaiser MD s Dilation And Curettage (D&C)(Not Applicable) - Jayden Kaiser MD Familial anesthetic complications: none Was Beta Emperatriz taken within 24 hours: Yes Was Clonidine taken within 24 hours: N/A Social No alcohol and No tobacco Exam alert, oriented x 3, clear to auscultation bilaterally and regular rate & rhythm Airway Submandibular: within normal limits Cervical ROM: within normal limits Mallampati: Class II Dentition: chipped Comments: Comments: h/o difficult intubation , very poor dentition, multiple caries Pulmonary Sleep Apnea CV/HEM Hypertension GI Gastroesophageal Reflux Disease Metabolic Morbid Obesity Neuropsych Anxiety, Depression and Headache Chronic pain/opioid (GUZMAN) Anesthetic Plan ASA status: 3 Anesthesia: General Medications/Allergies Home Medications Medication Instructions Recorded Confirmed Last Taken Type cyanocobalamin (vitamin B-12) 1,000 mcg PO DAILY PRN UNKNOWN 05/19/19 04/28/22 Unknown History 1,000 mcg capsule melatonin 10 mg capsule 10 mg PO BEDTIME 05/19/19 04/28/22 04/27/22 History qysangz-wajfpbulr-thes 333 mg-133 1 tab PO DAILY PRN unknown 05/27/19 04/28/22 Unknown History mg-8.3 mg tablet ondansetron HCl 8 mg tablet 8 mg PO Q12H nausea 90 days #180 06/06/21 04/28/22 04/28/22 Rx tabs propranolol 80 mg tablet 80 mg PO BID pain 90 days #180 tabs 06/06/21 04/28/22 04/28/22 Rx fluticasone propionate 50 1 spray intranasal BID allergic 07/26/21 04/28/22 Unknown Rx mcg/actuation nasal rhinitis 90 days #32 grams spray,suspension polyethylene glycol 3350 17 gram 17 g PO DAILY Chronic constipation 07/26/21 04/28/22 04/27/22 Rx oral powder packet (Miralax) #100 ea triamterene 37.5 1 tab PO QAM blood pressure and 10/31/21 04/28/22 04/28/22 Rx mg-hydrochlorothiazide 25 mg tablet edema #90 tabs tizanidine 4 mg tablet 8 mg PO QID PRN muscle spasticity 11/01/21 04/28/22 04/28/22 Rx 90 days #120 tabs albuterol sulfate 90 mcg/actuation 2 puff inhalation Q6H PRN 12/05/21 04/28/22 Unknown Rx aerosol inhaler shortness of breath or wheezing #8.5 grams diphenhydramine HCl 25 mg capsule 50 mg PO BEDTIME PRN sleep #90 caps 12/05/21 04/28/22 04/27/22 Rx (Benadryl) epinephrine 0.3 mg/0.3 mL 0.3 mg (0.3 mL) IM Q4H PRN 12/05/21 04/28/22 Unknown Rx injection, auto-injector (EpiPen anaphylaxis #2 ea 2-Juan) amlodipine 5 mg tablet 5 mg PO DAILY Hypertension #90 tabs 01/13/22 04/28/22 04/28/22 Rx alprazolam 0.5 mg tablet 0.5 mg PO DAILY PRN panic attacks 01/29/22 04/28/22 04/24/22 Rx #30 tabs meloxicam 15 mg tablet 15 mg PO DAILY arthritis #90 tabs 04/03/22 04/28/22 Unknown Rx metoclopramide HCl 10 mg tablet 10 mg PO BID acid reflux #180 tabs 04/03/22 04/28/22 04/28/22 Rx (Reglan) cephalexin 500 mg capsule 500 mg PO BID sore throat 10 days 04/24/22 04/28/22 Unknown Rx #20 caps oxycodone 10 mg tablet 10 mg PO QID PRN pain 30 days #120 04/24/22 04/28/22 04/28/22 Rx tabs fluconazole 150 mg tablet 150 mg PO Q3D 2 doses #10 tabs 04/25/22 04/28/22 Unknown Rx (Diflucan) dexamethasone 1 mg/mL drops 0.5 mg PO DAILY 04/28/22 04/28/22 04/27/22 History (concentrate) Allergies Allergy/AdvReac Type Severity Reaction Status Date / Time adhesive tape Allergy unknown Verified 04/24/22 13:56 celecoxib [From Celebrex] Allergy difficulty Verified 04/24/22 13:56 breathing duloxetine [From Cymbalta] Allergy difficulty Verified 04/24/22 13:56 breathing erythromycin base Allergy nausea Verified 04/24/22 13:56 NSAIDS (Non-Steroidal Allergy upset Verified 04/24/22 13:56 Anti-Inflamma stomach sumatriptan [From Imitrex] Allergy difficulty Verified 04/24/22 13:56 breathing topiramate [From Topamax] Allergy confusion Verified 04/24/22 13:56 venlafaxine [From Effexor] Allergy unknown Verified 04/24/22 13:56 [facility] Anesthesia Medical History Allergic rhinitis due to allergen Anxiety and depression Cervical stenosis of spine Chronic constipation Chronic left shoulder pain Chronic lumbosacral pain Chronic migraine w/o aura w/o status migrainosus, not intractable On propranolol prophylaxis Chronic narcotic use Encounter for long-term opiate analgesic use GERD (gastroesophageal reflux disease) Healthcare maintenance History of migraine headaches Morbid obesity with BMI of 40.0-44.9, adult Status post fracture of femur left leg bone Surgical History S/P section x 1 S/P cholecystectomy S/P exploratory laparotomy splenectomy due to trauma S/P tubal ligation Skin lesion of back Excision of chronic wound Family History Mother Hypertension Grandmother CAD (coronary artery disease) Maternal Hypertension maternal Father Hyperlipidemia Denies family history of Colon cancer Pancreatic cancer Ovarian cancer Thyroid cancer Diabetes Clotting disorder Dementia Chronic kidney disease (CKD) Breast cancer Anesthesia complication Bleeding disorder Lung disease Cancer Uterine cancer Stroke Social History (Updated 01/14/22 @ 14:29 by Noreen Escudero LPN) Smoking and tobacco status: never smoked Second hand smoke exposure: No Alcohol intake: current Alcohol intake frequency: holidays/special occasions o nly Lives independently: Yes Household members: spouse Marital status: Number of children: 2 Highest education level completed: Some College, No Degree service: No Current occupational status: unemployed History of recent travel: No Current gender identity: Female Female Reproductive History Date of last menstrual period: 10/16/21 Para: 2 Data Anesthesia 04/28/22 11:44 04/28/22 11:44 Short CBC 04/28/22 Range/Units 11:44 WBC 11.2 H (4.0-10.0) 10^3/uL Hgb 15.3 (11.5-15.3) g/dL Hct 45.4 (37.0-47.0) % MCV 100.4 H (81-99) fl Plt Count 419 H (130-400) 10^3/cmm Neut % (Auto) 71.7 % Neut # (Auto) 8.01 H (1.8-7.7) 10^3/uL BMP 04/28/22 11:44 Sodium 132 L Potassium 3.5 Chloride 95 L Carbon Dioxide 26 BUN 11 Creatinine 0.8 Glucose 141 H Calcium 9.7 Liver Function 04/28/22 Range/Units 11:44 Total Bilirubin 0.5 (0.15-1.2) mg/dL AST 21 (0-32) U/L ALT 18 (0-33) U/L Alkaline Phosphatase 58 (35-105) U/L Albumin 4.2 (3.5-5.2) g/dL Urine 04/28/22 Range/Units 11:48 Urine Color Yellow (Yellow) Urine Appearance Clear (CLEAR) Urine pH 7 (5-7) Ur Specific [place] 1.010 (1.005-1.030) Urine Protein Neg (Negative) Urine Glucose (UA) Norm (Normal) Urine Ketones Negative (Negative) Urine Nitrate Negative (Negative) Urine Bilirubin Neg (Negative) Ur Leukocyte Esterase Negative (Negative) Blood Bank 04/28/22 11:44 Blood Type A Positive Rho(D) Type Positive Antibody Screen Negative Cardiac Studies: No Data to Display
[2022-04-30] VITALS (8 sets, daily range): BP systolic 135–158; BP diastolic 77–102; PULSE 71–76; RESP 16–18; TEMP 36.2–37.1; O2SAT 93–98
[2022-04-30] MEDS: sodium chloride 0.9% 500 ML IV (11:58)
--- NOTE | 2022-04-30 12:03 | P.ANESUD_ITS ---
Pre-Anesthetic Update Pre-Anesthetic Assessment: Date of Surgery/Procedure: 04/30/22 Preop Joseline gnosis: Abnormal uterine bleeding, endometrial/endocervical polyp Proposed Procedure: Operation Date: 04/30/22 12:50 Proposed Procedures p Hysteroscopy, polypectomy via Myosure 62874 N95.0,N84.1(Not Applicable) - Jayden Kaiser MD s Dilation And Curettage (D&C)(Not Applicable) - Jayden Kaiser MD Any changes to Pre-Anesthetic Assessment?: No Last Intake: Intake Last Liquid Date 04/30/22 Last Liquid Time 06:00 Last Solid Date 04/29/22 Last Solid Time 23:00 Labs Last 48hrs: Short CBC 04/28/22 Range/Units 11:44 WBC 11.2 H (4.0-10.0) 10^3/ uL Hgb 15.3 (11.5-15.3) g/dL Hct 45.4 (37.0-47.0) % MCV 100.4 H (81-99) fl Plt Count 419 H (130-400) 10^3/c mm Neut % (Auto) 71.7 % Neut # (Auto) 8.01 H (1.8-7.7) 10^3/u L BMP 04/28/22 11:44 Sodium 132 L Potassium 3.5 Chloride 95 L Carbon Dioxide 26 BUN 11 Creatinine 0.8 Glucose 141 H Calcium 9.7 Liver Function 04/28/22 Range/Units 11:44 Total Bilirubin 0.5 (0.15-1.2) mg/dL AST 21 (0-32) U/L ALT 18 (0-33) U/L Alkaline Phosphata se 58 (35-105) U/L Albumin 4.2 (3.5-5.2) g/dL Urine 04/28/22 Range/Units 11:48 Urine Color Yellow (Yellow) Urine Appearance Clear (CLEAR) Urine pH 7 (5-7) Ur Specific [place]it y 1.010 (1.005-1.030) Urine Protein Neg (Negative) Urine Glucose (UA) Norm (Normal) Urine Ketones Negative (Negative) Urine Nitrate Negative (Negative) Urine Bilirubin Neg (Negative) Ur Leukocyte Jenny ase Negative (Negative) Blood Bank 04/28/22 11:44 Blood Type A Positive Rho(D) Type Positive Antibody Screen Negative Vitals: Temperature 98.7 F 04/30/22 11:40 Pulse Rate 74 04/30/22 11:40 Pulse Rhythm 04/30/22 11:41 Pulse Strength 3+ Normal 04/30/22 11:41 Respiratory Rate 16 04/30/22 11:40 Blood Pressure 158/102 04/30/22 11:40 Blood Pressure Bhavya n 120 04/30/22 11:40 Pulse Oximetry 94 04/30/22 11:40 Oxygen Delivery Me thod 04/30/22 11:41 Exam: Pre-Anes Outpt Exam: alert, oriented x 3, clear to auscultation bilaterally and regular rate & rhythm Cardiac Studies: No Data to Display
[2022-04-30] MEDS: enoxaparin 30 mg/0.3 mL Syringe SUBCUT (12:18)
[2022-04-30] MEDS: scopolamine 1.5 Patch 1 PATCH TRANSDERMA (12:24)
[2022-04-30 12:48] LABS: OR HCG Qualitative Urine Negative (Negative)
[2022-04-30] MEDS: midazolam 1 mg/mL INJ 2 mL 2 MG IVP (12:50)
[2022-04-30] MEDS: sodium chloride 0.9% 1,000 ML 30 ML IV (13:00)
--- NOTE | 2022-04-30 13:59 | W.PM.OPSUD ---
Surgery/Procedure H&P Update DATE OF PROCEDURE: April 30, 2022 DATE H&P PERFORMED: 04/28/22 H&P UPDATE INFORMATION: I have reviewed H&P completed within last 30 days, I have examined patient prior to procedure and No changes to prior documentation PREOP DIAGNOSIS: Abnormal uterine bleeding, endometrial/endocervical polyp PLANNED PROCEDURE: Operation Date: 04/30/22 12:50 Proposed Procedures p Hysteroscopy, polypectomy via Myosure 57257 N95.0,N84.1(Not Applicable) - Jayden Kaiser MD s Dilation And Curettage (D&C)(Not Applicable) - Jayden Kaiser MD
[2022-04-30] MEDS: ceFAZolin 3,000 MG in sodium chloride 0.9% (100 ml) 100 ML 200 MG IV (14:03)
--- NOTE | 2022-04-30 14:53 | PM.OP ---
Operative Report Date of procedure: April 30, 2022 Pre-op diagnosis: Preop Diagnosis Abnormal uterine bleeding, endometrial/ endocervical polyp Post-op diagnosis: Same as above Procedure done: Hysteroscopy, endocervical polypectomy, dilation and curettage via MyoSure Specimens removed/disposition: Endocervical polyp, endometrial curettings. Surgeon: Jayden Kaiser MD Estimated blood loss (mL): 5 IV fluids (mL): 500 Complications: None Procedure: After informed consent, the risks included but were not limited to bleeding, infection, injury to internal organs. The patient was counseled on a possible laparotomy and on the potential need for hysterectomy. The patient expressed understanding of the risks involved, all questions were answered, and the patient consented to the procedure. The patient was taken to the operating room where general anesthesia was administered. She was placed in the dorsal lithotomy position and prepped and draped in sterile fashion. A time out procedure was performed. The patient was examined under anesthesia and found to have a normal uterus with normal adnexa. A sterile speculum was placed in the vagina and endocervical polyp was noted protruding through the external os. The endocervical polyp was grasped with ring forceps and excised by rotating the ring forceps. The uterus was then gently sounded to 7 cm, and the cervix was dilated. The 0 degrees MyoSure hysteroscope was advanced gently to the uterine fundus while visualizing the monitor. Survey of the uterine cavity showed: Endocervical polyp, the fundus shows proliferative endometrium ; left ostium was visualized, and lateral wall with atrophic and; right ostium visualized, and lateral wall with atrophic and; anterior and posterior gabriel are with atrophic and; endocervical canal is normal. The MyoSure device was advanced and the direct visualization the polyp was morcellated without complication. At the end of morcellation the fluid deficit was 400 mL and was estimated at approximately 200 mL were on the floor. There was minimal bleeding noted and the tenaculum removed with goad hemostasis noted. The patient tolerated the procedure well. The patient was taken to the recovery area in stable condition.
--- NOTE | 2022-04-30 15:28 | ANE.PACU2 ---
Inpatient post-anesthesia follow up: Airway intact: Yes Vital signs: Temperature 97.1 F Pulse Rate 76 Respiratory Rate 18 Blood Pressure 155/96 Pulse Oximetry 95 Oxygen Delivery Me thod Room Air Oxygen Flow Rate 6 Fraction of Inspir ed Oxygen Hydration adequate: Yes Nausea and vomiting: No Pain level: 3 Mental status: Baseline
[2022-04-30] MEDS: ondansetron 2 mg/ML SDV 2 mL 4 MG IVP (16:43)
== END 2022-04-30 16:40 | disposition home or self-care (01) ==
PROVIDERS: PCP Family Medicine Adult Medicine; Visit Provider Obstetrics & Gynecology
PROC: 0UDB8ZZ Extraction of Endometrium, Via Natural or Artificial Opening Endoscopic (ICD-10-PCS; CPT 58558; principal; 2022-04-30 12:40)
PROC: (CPT 58120; 2022-04-30 12:40)
DX: N93.9 Abnormal uterine and vaginal bleeding, unspecified (principal); N84.1 Polyp of cervix uteri; G47.30 Sleep apnea, unspecified; I10 Essential (primary) hypertension; K21.9 Gastro-esophageal reflux disease without esophagitis
CPT/HCPCS: 58558; 36415; 80053; 81003; 81025; 84703; 85025; 86850; 86900; 88305; J0690; J1100; J1650; J2250; J2405; J2704; J2765; J3010; J7030; J7040

== ENCOUNTER → 2022-11-18 15:18 | Outpatient (BNVA) | payer MEDICARE, SELFPAY | PROVIDERS: PCP Family Medicine Adult Medicine; Visit Provider Family Medicine Adult Medicine | DX: I10 Essential (primary) hypertension (principal); E66.01 Morbid (severe) obesity due to excess calories; Z68.41 Body mass index [BMI] 40.0-44.9, adult; Z79.891 Long term (current) use of opiate analgesic | CPT/HCPCS: 80053; 83036; 84443 ==

== ENCOUNTER 2022-12-06 18:31 | Emergency (ER) | payer MEDICARE, SELFPAY ==
[2022-12-06 19:21] VITALS: BP 154/95; PULSE 81; RESP 16; TEMP 37; O2SAT 94; BMI 43.2
[2022-12-06 21:56] VITALS: BP 157/82; PULSE 79; O2SAT 91
[2022-12-06 22:50] LABS: Basophils # 0.1 10^3/uL (0.0-0.1); Basophils % 0.3 %; Eosinophils # 0.2 10^3/uL (0.0-0.8); Hematocrit 45.9 % (37.0-47.0); Hemoglobin 15.6 g/dL (11.5-15.3); Lymphocytes # 1.4 10^3/uL (0.8-4.8); Lymphocytes % 9.4 %; Mean Corpuscular Hemoglobin 33.5 pg (28.0-34.0); Mean Corpuscular Volume 98.5 fl (81-99); Mean Platelet Volume 9.2 fL (7.4-10.4); Monocytes % 6.7 %; Neutrophils # 12.58 10^3/uL (1.8-7.7); Neutrophils % 82.3 %; Nucleated Red Blood Cells % 0 %; Platelet Count 433 10^3/cmm (130-400); Red Blood Count 4.66 10^6/uL (4.1-5.3); Red Cell Distribution Width 12.5 % (12.1-15.1); White Blood Count 15.3 10^3/uL (4.0-10.0)
[2022-12-06] MEDS: sodium chloride 0.9% 1,000 ML 999 ML IV (22:50)
[2022-12-06 22:51] VITALS: RESP 18
[2022-12-06] MEDS: HYDROmorphone 1 mg/mL INJ 1 mL IVP (22:51)
[2022-12-06] MEDS: metoclopramide 5 mg/mL SDV 2 mL 10 MG IVP (22:51)
[2022-12-06] MEDS: ondansetron 2 mg/ML SDV 2 mL 4 MG IVP (22:51)
--- NOTE | 2022-12-06 22:59 | CTR_ITS ---
PROCEDURE INFORMATION: Exam: CT Abdomen And Pelvis With Contrast Exam date and time: 12/06/2022 11:12 PM Age: 52 years old Clinical indication: Abdominal pain; Prior surgery; Surgery date: 6+ months; Surgery type: Gb. Csection. Tubal. Partial splenectomy; Patient HX: C/O epigastric pain. History of adhesions. ; Additional info: Abd pain distension TECHNIQUE: Imaging protocol: Computed tomography of the abdomen and pelvis with contrast. Radiation optimization: All CT scans at this facility use at least one of these dose optimization techniques: automated exposure control; mA and/or kV adjustment per patient size (includes targeted exams where dose is matched to clinical indication); or iterative reconstruction. Contrast material: OMNI 350; Contrast volume: 100 ml; Contrast route: INTRAVENOUS (IV); REPORTING DATA: Count of CT and Cardiac NM exams in prior 12 months: This patient has received 0 known CTs and 0 known cardiac nuclear medicine studies in the 12 months prior to the current study. COMPARISON: CT abdomen pelvis wo con [id number] 11/25/2021 7:41 PM RADIATION DOSE METRICS: Total DLP (mGy-cm): 1149.96 FINDINGS: Liver: Normal. No mass. Gallbladder and bile ducts: Cholecystectomy. The bile ducts are normal. Pancreas: Normal. No ductal dilation. Spleen: Small oval-shaped spleen. Adrenal glands: Normal. No mass. Kidneys and ureters: Normal. No hydronephrosis. Stomach and bowel: There is a 12 cm long segment of inflamed small bowel in the anterior mid abdomen with mild wall thickening, adjacent fat stranding, in a diameter of 3.6 cm. No transition point or obstruction. The small bowel proximal and distal to this segment appears normal. Stomach and colon are unremarkable. Appendix: The appendix is not visualized. No secondary signs of appendicitis. Intraperitoneal space: Unremarkable. No free air. No significant fluid collection. Vasculature: Unremarkable. No abdominal aortic aneurysm. Lymph nodes: Unremarkable. No enlarged lymph nodes. Urinary bladder: Unremarkable as visualized. Reproductive: Multiple uterine fibroids. The ovaries are unremarkable. Bones/joints: Unremarkable. No acute fracture. Soft tissues: . Tiny fat containing umbilical hernia. CT/CT abdomen pelvis w con* [id number] IMPRESSION: 1. 12 cm segment of inflamed dilated small bowel. No obstruction. This most likely represents infectious or inflammatory enteritis. Ischemic enteritis cannot be entirely excluded.
[2022-12-06 23:04] LABS: Alanine Aminotransferase 169 U/L (0-33); Albumin Level 4.2 g/dL (3.5-5.2); Alkaline Phosphatase 72 U/L (35-105); Anion Gap 15.2 (5-19); Aspartate Amino Transferase 164 U/L (0-32); Blood Urea Nitrogen 12 mg/dL (6-20); C Reactive Protein 46.8 mg/L (0.0-4.9); Calcium 9.3 mg/dL (8.5-10.5); Carbon Dioxide 28 mmol/L (22-29); Chloride 95 mmol/L (98-107); Globulin 3.9 g/dL (1.3-4.6); Glomerular Filtration Rate 87.2 mL/min (90-130); Glucose 116 mg/dL (65-115); Lipase 29 U/L (13-60); Osmolality Calculated 279 mOsm/kg (285-295); Potassium 4.2 mmol/L (3.5-5.1); Sodium 134 mmol/L (136-145); Total Bilirubin 0.9 mg/dL (0.15-1.2); Total Protein 8.1 g/dL (6.6-8.7)
[2022-12-06] MEDS: iohexol 350 mg/mL 500 mL Btl (per mL) IV (23:13)
[2022-12-06] MEDS: aluminum-mag hydrox-simethicon 30 ML, sucralfate oral liq 1 GM PO (23:23)
[2022-12-06 23:25] VITALS: BP 147/88; PULSE 91; O2SAT 94
[2022-12-06 23:30] VITALS: BP 160/91; PULSE 87; O2SAT 93
--- NOTE | 2022-12-06 23:53 | ED_ITS ---
HPI - Abdominal Pain General: Chief Complaint: Abdominal Pain Stated Complaint: ABD Pain Time Seen by Provider: 12/06/22 21:34 Source: patient History of Present Illness: 52-year-old female with a history of multiple abdominal surgeries. She presents with epigastric pain radiating into her back. She has been vomiting. She has had this a couple of times she says. She has been taking Maalox with some improvement. Her belly is bloated and full feeling. She has been having bowel movements. She says that she has had bowel obstructions in the past. She has not tolerated NG tube well for treatment. No fever. No diarrhea. No blood in the stool. MD elicited complaint: abdominal pain Pertinent past history: constipation and other Onset (ago): hour(s) Pain Consistency: constant Location: Diffuse and Epigastric Severity: moderate Quality: stabbing, aching and fullness Relieving factors: nothing Associated Symptoms: Reports bloating, nausea, poor appetite and vomiting; Denies change in stool character, chills, dysuria, fever(s), hematochezia, hematemesis and melena Review of Systems Const: Denies: fever(s) or chills ENMT: Denies: throat pain Card: Denies: chest pain Resp: Denies: dyspnea, productive cough or non-productive cough GI: Reports: abdominal pain, nausea, vomiting and bloating; Denies: hematemesis, change in stool character, hematochezia or melena : Denies: flank pain, difficulty voiding or dysuria Neuro: Reports: headache(s) [facility] ED PFSH: Medical History Allergic rhinitis due to allergen Anxiety and depression Asthma with allergic rhinitis Cervical stenosis of spine Chronic constipation Chronic left shoulder pain Chronic lumbosacral pain Chronic migraine w/o aura w/o status migrainosus, not intractable On propranolol prophylaxis Chronic narcotic use Encounter for long-term opiate analgesic use GERD (gastroesophageal reflux disease) History of migraine headaches Morbid obesity with BMI of 40.0-44.9, adult Opioid contract exists Prediabetes Status post fracture of femur left leg bone Surgical History S/P section x 1 S/P cholecystectomy S/P exploratory laparotomy splenectomy due to trauma S/P tubal ligation Skin lesion of back Excision of chronic wound Family History Mother Hypertension Grandmother CAD (coronary artery disease) Maternal Hypertension maternal Father Hyperlipidemia Denies family history of Colon cancer Pancreatic cancer Ovarian cancer Thyroid cancer Diabetes Clotting disorder Dementia Chronic kidney disease (CKD) Breast cancer Anesthesia complication Bleeding disorder Lung disease Cancer Uterine cancer Stroke Social History Smoking and tobacco status: never smoked Second hand smoke exposure: No Alcohol intake: current Alcohol intake frequency: holidays/special occasions only Substance/Drug Use: never Lives independently: Yes Household members: spouse Marital status: Number of children: 2 Highest education level completed: Some College, No Degree service: No Current occupational status: unemployed Do you think of yourself as: Straight/Heterosexual Current gender identity: Female Female Reproductive History: Para: 2 Physical Exam Const: GENERAL APPEARANCE: cooperative and ill appearing (Mildly); not frail appearing HENMT: COMMON NORMALS: normocephalic, atraumatic and Normal external nose present HEAD & SCALP: normocephalic and atraumatic FACE & SINUS: normal facial exam and face symmetric NOSE: Normal external nose present Eye: COMMON NORMALS: Equal, round and reactive pupils present and EOMs intact bilaterally PUPIL: Yes Equal, round and reactive pupils present Neck/C-Spine: GENERAL: Yes trachea midline Chest: CHEST: Yes Symmetrical chest wall rise Resp: COMMON NORMALS: normal respiratory effort, No retractions, No use of accessory muscles and clear to auscultation bilaterally AUSCULTATION: clear to auscultation bilaterally Cardio: COMMON NORMALS: regular rate and regular rhythm RATE: regular rate RHYTHM: regular rhythm GI: COMMON NORMALS: Soft to palpation INSPECTION: Yes abdominal distension AUSCULTATION: Yes normoactive bowel sounds PALPATION: Yes Soft to palpation and Yes Tenderness to palpation present (GI) (Diffuse) Extremity: COMMON NORMALS: no pedal edema Neuro: YAA COMA SCALE: document GCS findings Sinclair coma scale eye opening: Spontaneous Sinclair coma scale verbal response: Orientated Sinclair coma scale motor response: Obey commands Yaa coma scale total score: 15 SENSORY EXAM: Yes extremities (intact) Psych: COMMON NORMALS: speech normal SPEECH: Yes normal speech Skin: COMMON NORMALS: no rashes or lesions noted GENERAL SKIN EXAM: no rashes or lesions noted Course Vital Signs: Vital signs: Vital Signs Temperature 98.6 F 12/06/22 19:21 Pulse Rate 94 12/07/22 02:12 Respiratory Rate 14 12/07/22 02:12 Blood Pressure 142/101 12/07/22 02:12 Pulse Oximetry 95 12/07/22 02:12 Oxygen Delivery Me thod Room Air 12/07/22 00:30 MDM - Abdominal Pain Medical Decision Making Patient has a leukocytosis of 15. Mild hemoconcentration. Creatinine is normal. Liver enzymes are mildly elevated, but bilirubin is 0.9. The patient does not have a gallbladder. CRP is 47. Lipase is 29. CT of the abdomen p william is pending. She has received a GI cocktail as well as pain medication and fluid. CT shows enteritis. Small bowel is inflamed and dilated without obstruction. Patient counseled on diagnosis. She will be allowed home on metronidazole and ciprofloxacin for coverage, pain medication and antiemetic. She is feeling much better after IV fluid and pain medication here. Close outpatient follow-up. Lab Data 12/06/22 22:45 12/06/22 22:45 Labs/Radiology: Radiology Impressions Abdomen/Pelvis CT 12/06/22 22:59 IMPRESSION: 1. 12 cm segment of inflamed dilated small bowel. No obstruction. This most likely represents infectious or inflammatory enteritis. Ischemic enteritis cannot be entirely excluded. Laboratory Results WBC 15.3 10^3/uL (4.0-10.0) H 12/06/22 22:45 RBC 4.66 10^6/uL (4.1-5.3) 12/06/22 22:45 Hgb 15.6 g/dL (11.5-15.3) H 12/06/22 22:45 Hct 45.9 % (37.0-47.0) 12/06/22 22:45 MCV 98.5 fl (81-99) 12/06/22 22:45 MCH 33.5 pg (28.0-34.0) 12/06/22 22:45 MCHC 34.0 g/dL (30.0-36.0) 12/06/22 22:45 RDW 12.5 % (12.1-15.1) 12/06/22 22:45 Plt Count 433 10^3/cmm (130-400) H 12/06/22 22:45 MPV 9.2 fL (7.4-10.4) 12/06/22 22:45 Neut % (Auto) 82.3 % 12/06/22 22:45 Lymph % (Auto) 9.4 % 12/06/22 22:45 [place] % (Auto) 6.7 % 12/06/22 22:45 Eos % (Auto) 1.0 % 12/06/22 22:45 Baso % (Auto) 0.3 % 12/06/22 22:45 Neut # (Auto) 12.58 10^3/uL (1.8-7.7) H 12/06/22 22:45 Lymph # (Auto) 1.4 10^3/uL (0.8-4.8) 12/06/22 22:45 [place] # (Auto) 1.0 10^3/uL (0.2-0.9) H 12/06/22 22:45 Eos # (Auto) 0.2 10^3/uL (0.0-0.8) 12/06/22 22:45 Baso # (Auto) 0.1 10^3/uL (0.0-0.1) 12/06/22 22:45 Nucleated RBC % (auto) 0 % 12/06/22 22:45 Nucleated RBCs # 0.0 /100WBC 12/06/22 22:45 Sodium 134 mmol/L (136-145) L 12/06/22 22:45 Potassium 4.2 mmol/L (3.5-5.1) 12/06/22 22:45 Chloride 95 mmol/L (98-107) L 12/06/22 22:45 Carbon Dioxide 28 mmol/L (22-29) 12/06/22 22:45 Anion Gap 15.2 (5-19) 12/06/22 22:45 BUN 12 mg/dL (6-20) 12/06/22 22:45 Creatinine 0.7 mg/dL (0.5-0.9) 12/06/22 22:45 GFR Calculation 87.2 mL/min (90-130) L 12/06/22 22:45 Glucose 116 mg/dL (65-115) H 12/06/22 22:45 Calculated Osmolality 279 mOsm/kg (285-295) L 12/06/22 22:45 Calcium 9.3 mg/dL (8.5-10.5) 12/06/22 22:45 Total Bilirubin 0.9 mg/dL (0.15-1.2) 12/06/22 22:45 AST 164 U/L (0-32) H 12/06/22 22:45 ALT 169 U/L (0-33) H 12/06/22 22:45 Alkaline Phosphatase 72 U/L (35-105) 12/06/22 22:45 C-Reactive Protein 46.8 mg/L (0.0-4.9) H 12/06/22 22:45 Total Protein 8.1 g/dL (6.6-8.7) 12/06/22 22:45 Albumin 4.2 g/dL (3.5-5.2) 12/06/22 22:45 Globulin 3.9 g/dL (1.3-4.6) 12/06/22 22:45 Lipase 29 U/L (13-60) 12/06/22 22:45 Urine Color Yellow (Yellow) 12/06/22 23:57 Urine Appearance Hazy (CLEAR) A 12/06/22 23:57 Urine pH 6.5 (5-7) 12/06/22 23:57 Ur Specific [place] 1.010 (1.005-1.030) 12/06/22 23:57 Urine Protein Trace (Negative) 12/06/22 23:57 Urine Glucose (UA) Norm (Normal) 12/06/22 23:57 Urine Ketones Negative (Negative) 12/06/22 23:57 Urine Blood Trace (Negative) H 12/06/22 23:57 Urine Nitrate Negative (Negative) 12/06/22 23:57 Urine Bilirubin Neg (Negative) 12/06/22 23:57 Urine Urobilinogen Norm mg/dL (Negative) 12/06/22 23:57 Ur Leukocyte Esterase Negative (Negative) 12/06/22 23:57 Urine RBC 0-4 /hpf (0-2) H 12/06/22 23:57 Urine WBC 0-4 /hpf (0-5) H 12/06/22 23:57 Ur Squamous Epith Cells 25-40 /hpf (0-5) H 12/06/22 23:57 Amorphous Sediment Not Reportable 12/06/22 23:57 Urine Bacteria 2+ /hpf (NONE) H 12/06/22 23:57 Discharge Plan Discharge Patient Disposition: Home Clinical Impression: Enteritis Condition: Stable Prescriptions: New metronidazole 500 mg tablet 500 mg PO TID Qty: 21 0RF ciprofloxacin HCl 500 mg tablet 500 mg PO BID Qty: 14 0RF ondansetron 4 mg film 4 mg PO DAILY PRN (Reason: nausea and vomiting) Qty: 10 0RF Diflucan 150 mg tablet 150 mg PO Q3D Qty: 2 0RF No Action polyethylene glycol 3350 [Miralax] 17 gram powder in packet 17 g PO DAILY Qty: 100 3RF fluticasone propionate 50 mcg/actuation spray,suspension 1 spray intranasal BID 90 Days Qty: 32 3RF Rx Instructions: administer into each nostril loratadine 10 mg tablet 10 mg PO DAILY Qty: 90 3RF budesonide-formoterol [Symbicort] 80-4.5 mcg/actuation HFA aerosol inhaler 1 puff inhalation BID Qty: 10.2 5RF oxycodone 10 mg tablet 10 mg PO QID PRN (Reason: pain) 30 Days Qty: 120 0RF Rx Instructions: refill on or after 30 day intervals epinephrine [EpiPen 2-Juan] 0.3 mg/0.3 mL auto-injector 0.3 mg IM Q4H PRN (Reason: anaphylaxis) Qty: 2 0RF diphenhydramine HCl [Benadryl] 25 mg capsule 50 mg PO BEDTIME PRN (Reason: sleep) Qty: 90 4RF albuterol sulfate 90 mcg/actuation HFA aerosol inhaler 2 puff inhalation Q6H PRN (Reason: shortness of breath or wheezing) Qty: 8.5 0RF meloxicam 15 mg tablet 15 mg PO DAILY Qty: 90 1RF Rx Instructions: with food tizanidine 4 mg tablet 8 mg PO QID PRN (Reason: muscle spasticity) 90 Days Qty: 120 0RF ondansetron HCl 8 mg tablet 8 mg PO Q12H 90 Days Qty: 200 0RF Rx Instructions: // alprazolam 0.5 mg tablet 0.5 mg PO DAILY PRN (Reason: panic attacks) 30 Days Qty: 30 3RF amlodipine 10 mg tablet 10 mg PO BID Qty: 180 3RF metoclopramide HCl [Reglan] 10 mg tablet 10 mg PO BID Qty: 180 1RF triamterene-hydrochlorothiazid 37.5-25 mg tablet 1 tab PO QAM Qty: 90 1RF propranolol 80 mg tablet 80 mg PO BID 90 Days Qty: 180 0RF Rx Instructions: Take one tablet by mouth twice a day. acetaminophen 325 mg capsule 325 mg PO Q4H PRN (Reason: fever or pain) Qty: 60 0RF Discharge Orders: Discharge ED (Routine); Ordered 12/07/22 Ordered By: Mak Ruelas Referrals: Gt Russell MD [Primary Care Provider] - 1-3 days Patient Instructions: Enteritis (ED), Opioid Safety, Pain Management Activity Restrictions/Additional Instructions: Take nausea medication scheduled for the next 24 hours, then as needed. Return for worsening pain despite treatment, fever greater than 100, vomiting liquids or medications, other concerning symptoms. Follow a clear liquid diet for the next 36 hours, then you may slowly add foods back in to your diet. Follow-up with your doctor this week. Coding Level of Care Code ED [facility] for Dashawn Randall
[2022-12-07 00:11] LABS: Bilirubin Urine Neg (Negative); Blood Urine Trace (Negative); Glucose Urine UA Norm (Normal); Ketones Urine Negative (Negative); Leukocyte Esterase Urine Negative (Negative); Nitrate Urine Negative (Negative); Protein Urine Trace (Negative); Urine Appearance Hazy (CLEAR); Urine Color Yellow (Yellow); Urobilinogen Urine Norm (Negative); pH Urine 6.5 (5-7)
[2022-12-07 00:12] LABS: Add Urine Microscopic? YES
[2022-12-07 00:24] LABS: Bacteria Urine 2+ /hpf; RBC Urine 0-4 /hpf (0-2); Squamous Epithelial Cell Urine 25-40 /hpf (0-5); WBC Urine 0-4 /hpf (0-5)
[2022-12-07 00:30] VITALS: BP 152/109; PULSE 93; O2SAT 91
[2022-12-07 02:01] VITALS: RESP 14
[2022-12-07] MEDS: ciprofloxacin 500 mg Tablet PO (02:02)
[2022-12-07] MEDS: ondansetron 4 MG Tablet PO (02:02)
[2022-12-07] MEDS: metroNIDAZOLE 500 MG Tablet PO (02:02)
[2022-12-07 02:12] VITALS: BP 142/101; PULSE 94; RESP 14; O2SAT 95
== END 2022-12-07 02:13 | disposition home or self-care (01) ==
PROVIDERS: Emergency Provider Emergency Medicine; PCP Family Medicine Adult Medicine
DX: K52.9 Noninfective gastroenteritis and colitis, unspecified (principal)
CPT/HCPCS: 74177; 80053; 81001; 83690; 85025; 86140; 96361; 96374; 96375; 99285; J1170; J2405; J2765; J7030; Q0162; Q9967

== ENCOUNTER → 2024-08-03 15:04 | Outpatient (BNVA) | payer MEDICARE, SELFPAY | PROVIDERS: PCP Family Medicine Adult Medicine; Visit Provider Family Medicine | DX: R73.03 Prediabetes (principal); I10 Essential (primary) hypertension; E66.01 Morbid (severe) obesity due to excess calories; Z68.41 Body mass index [BMI] 40.0-44.9, adult | CPT/HCPCS: 80053; 80061; 83036; 84439; 84443; 85025 ==

== ENCOUNTER → 2025-04-04 10:46 | Outpatient (BNVA) | payer MEDICARE, SELFPAY | PROVIDERS: PCP Family Medicine; Visit Provider Emergency Medicine | DX: R10.A1 Flank pain, right side (principal); N39.0 Urinary tract infection, site not specified; Z79.891 Long term (current) use of opiate analgesic | CPT/HCPCS: 81000; 87086 ==